=== PATIENT | male | born 1955 | race Caucasian/White ===

== ENCOUNTER 2017-06-14 15:12 | Inpatient (IN) | payer MEDICAID ==
[2017-06-14 15:57] LABS: ADD MAN DIFF? NO
[2017-06-14 16:00] LABS: BASOPHILS % 0.1 % (0.0-2.0); HEMATOCRIT 41.8 % (42.0-52.0); HEMOGLOBIN 12.4 g/dl (14.0-18.0); LYMPHOCYTES # 0.7 10^3/ul (0.8-2.9); LYMPHOCYTES % 4.9 % (15.0-51.0); MEAN CORPUSCULAR HEMOGLOBIN 22.1 pg (29.0-33.0); MEAN CORPUSCULAR HGB CONC 29.7 g/dl (32.0-37.0); MEAN CORPUSCULAR VOLUME 74.6 fl (82.0-101.0); MEAN PLATELET VOLUME 10.5 fl (7.4-10.4); MONOCYTE # 0.7 10^3/ul (0.3-0.9); MONOCYTES % 4.9 % (0.0-11.0); NEUTROPHIL # 13.3 10^3/ul (1.6-7.5); NEUTROPHILS % 89.7 % (39.0-77.0); NUCLEATED RED BLOOD CELLS% 0.3 /100WBC (0.0-0.0); PLATELET COUNT 191 10^3/UL (140-415); RED CELL DISTRIBUTION WIDTH 20.5 % (11.5-14.5)
[2017-06-14 16:00] LABS: WHITE BLOOD COUNT 14.8 10^3/ul (4.8-10.8)
[2017-06-14] MEDS: VANCOMYCIN 1 GM (PMX) 250 ML IVPB (16:00)
[2017-06-14 16:09] LABS: AADO2 Arterial 42.1 mmHg (7.0-24.0); Allen Test ACCEPTAB; Arterial Blood Gas Oxygen Sat 95.6 mmHG (95.0-98.0); Arterial COHb 1.2 % (0.0-3.0); Arterial Fraction of Oxyhgb 94.5 % (93.0-99.0); Arterial HCO3 17.8 mmol/L (22.0-26.0); Arterial MetHb 0 % (0.0-1.5); Arterial Total Hemglobin 12.5 g/dl (12.0-18.0); Arterial pCO2 24.2 mmhg (35-45); MODE ROOM AIR; Site Left Radial
[2017-06-14 16:16] LABS: INR 1.42; PROTIME 17.6 Sec (11.9-14.9); PT RATIO 1.4
[2017-06-14] MEDS: CEFEPIME 1GM/50 ML (PMX) 50 ML IVPB (16:25)
[2017-06-14] MEDS: FUROSEMIDE 40 MG INJ IV (16:25)
[2017-06-14 16:28] LABS: AMMONIA < 9 umol/l (9-30)
[2017-06-14 16:30] LABS: ALANINE AMINOTRANSFERASE 52 IU/L (13-69); ALBUMIN 3.1 g/dl (3.3-4.9); ALBUMIN/GLOBULIN RATIO 0.91; ALKALINE PHOSPHATASE 263 IU/L (42-121); ANION GAP 19 (8-16); ASPARTATE AMINO TRANSFERASE 33 IU/L (15-46); BILIRUBIN,INDIRECT 2.2 mg/dl (0-1.1); BLOOD UREA NITROGEN 37 mg/dl (7-20); CALCIUM 9.1 mg/dl (8.4-10.2); CARBON DIOXIDE 26 mmol/L (21-31); CHLORIDE 95 mmol/L (97-110); CREATININE 1.35 mg/dl (0.61-1.24); GLUCOSE 257 mg/dl (70-220); LIPASE 205 U/L (23-300); POTASSIUM 4.6 mmol/L (3.5-5.1); SODIUM 135 mmol/L (135-144); TOTAL PROTEIN 6.5 g/dl (6.1-8.1)
[2017-06-14 16:41] LABS: B-TYPE NATRIURETIC PEPTIDE 17200 PG/ML (0-125); TROPONIN-I 0.046 ng/ml (0.00-0.12)
[2017-06-14] MEDS ORDERED: VANCOMYCIN IV PER PHARMACY XX (17:00)
[2017-06-14] MEDS ORDERED: BISACODYL (EC) 5 MG TAB PO (17:30)
[2017-06-14] MEDS ORDERED: ACETAMINOPHEN 325 MG TAB PO (17:30)
[2017-06-14] MEDS ORDERED: LORAZEPAM 0.5 MG TAB PO (17:30)
[2017-06-14] MEDS ORDERED: morphine 2 MG INJ IV (17:30)
[2017-06-14] MEDS ORDERED: NACL 0.9% 3 ML SYG IV (17:30)
[2017-06-14] MEDS ORDERED: FUROSEMIDE 20 MG TAB PO (18:00)
[2017-06-14 20:58] LABS: LACTIC ACID 4.1 mmol/L (0.5-2.0)
[2017-06-14] MEDS: BENZONATATE 100 MG CAP PO (23:13)
[2017-06-14] MEDS: DOCUSATE SODIUM 100 MG CAP PO (23:13)
[2017-06-14] MEDS: TAMSULOSIN (SR) 0.4 MG CAP PO (23:13)
[2017-06-14] MEDS: ATORVASTATIN 80 MG TAB PO (23:13)
[2017-06-14] MEDS: HEPARIN 5,000 UNIT/0.5 ML VIAL SC (23:25)
[2017-06-15] MEDS: PIPER-TAZO 3.375 GM IV (PMX) 50 ML IVPB ×4 (00:43→18:56)
[2017-06-15] MEDS: VANCOMYCIN 1 GM in NS 250 ML IVPB (03:06)
[2017-06-15 04:32] LABS: LACTIC ACID 2.6 mmol/L (0.5-2.0)
[2017-06-15] MEDS: HEPARIN 5,000 UNIT/0.5 ML VIAL SC ×3 (05:24→20:41)
[2017-06-15] MEDS: DOCUSATE SODIUM 100 MG CAP PO ×3 (05:29→20:29)
[2017-06-15 05:52] LABS: ADD MAN DIFF? NO
[2017-06-15 06:01] LABS: WHITE BLOOD COUNT 15.9 10^3/ul (4.8-10.8)
[2017-06-15 06:01] LABS: BASOPHILS % 0.1 % (0.0-2.0); EOSINOPHILS # 0.1 10^3/ul (0.0-0.5); EOSINOPHILS % 0.3 % (0.0-7.0); HEMATOCRIT 39.8 % (42.0-52.0); HEMOGLOBIN 11.6 g/dl (14.0-18.0); LYMPHOCYTES # 0.9 10^3/ul (0.8-2.9); LYMPHOCYTES % 5.6 % (15.0-51.0); MEAN CORPUSCULAR HEMOGLOBIN 21.7 pg (29.0-33.0); MEAN CORPUSCULAR HGB CONC 29.1 g/dl (32.0-37.0); MEAN CORPUSCULAR VOLUME 74.5 fl (82.0-101.0); MEAN PLATELET VOLUME 10.8 fl (7.4-10.4); MONOCYTE # 0.8 10^3/ul (0.3-0.9); NEUTROPHIL # 14.1 10^3/ul (1.6-7.5); NEUTROPHILS % 88.5 % (39.0-77.0); PLATELET COUNT 170 10^3/UL (140-415); RED BLOOD COUNT 5.34 10^6/ul (4.70-6.10); RED CELL DISTRIBUTION WIDTH 19.8 % (11.5-14.5)
[2017-06-15 06:35] LABS: ALANINE AMINOTRANSFERASE 50 IU/L (13-69); ALBUMIN 2.5 g/dl (3.3-4.9); ALKALINE PHOSPHATASE 200 IU/L (42-121); ANION GAP 12 (8-16); ASPARTATE AMINO TRANSFERASE 27 IU/L (15-46); BILIRUBIN,INDIRECT 1.5 mg/dl (0-1.1); BLOOD UREA NITROGEN 38 mg/dl (7-20); CALCIUM 8.4 mg/dl (8.4-10.2); CARBON DIOXIDE 31 mmol/L (21-31); CHLORIDE 97 mmol/L (97-110); CHOL/HDL RATIO 4.9 RATIO; CHOLESTEROL 84 mg/dl (100-200); CREATININE 1.35 mg/dl (0.61-1.24); GLUCOSE 238 mg/dl (70-220); HDL CHOLESTEROL 17 mg/dl (30-78); LDL CHOLESTEROL,CALCULATED 47 mg/dl; MAGNESIUM 1.9 mg/dl (1.7-2.5); POTASSIUM 3.4 mmol/L (3.5-5.1); SODIUM 137 mmol/L (135-144); TOTAL PROTEIN 5.6 g/dl (6.1-8.1); TRIGLYCERIDES 98 mg/dl (0-149)
[2017-06-15] MEDS: FUROSEMIDE 40 MG INJ IV ×2 (09:00→20:30)
[2017-06-15] MEDS: METOLAZONE 2.5 MG TAB PO (09:00)
[2017-06-15] MEDS ORDERED: TAMSULOSIN (SR) 0.4 MG CAP PO (09:00)
[2017-06-15] MEDS: ASPIRIN (EC) 81 MG TAB PO (09:09)
[2017-06-15] MEDS: ESCITALOPRAM 10 MG TAB PO (09:10)
[2017-06-15] MEDS: BENZONATATE 100 MG CAP PO (09:10)
[2017-06-15] MEDS: POTASSIUM CHLORIDE 20 MEQ POWDER FOR ORAL SOLN PO (12:33)
[2017-06-15] MEDS: ATORVASTATIN 80 MG TAB PO (20:30)
[2017-06-15] MEDS: TAMSULOSIN (SR) 0.4 MG CAP PO (20:30)
[2017-06-16] MEDS: PIPER-TAZO 3.375 GM IV (PMX) 50 ML IVPB ×5 (00:23→23:07)
[2017-06-16] MEDS: VANCOMYCIN 1 GM in NS 250 ML IVPB (03:45)
[2017-06-16 05:50] LABS: ADD MAN DIFF? NO
[2017-06-16] MEDS: HEPARIN 5,000 UNIT/0.5 ML VIAL SC ×2 (05:51→13:01)
[2017-06-16 05:57] LABS: WHITE BLOOD COUNT 14.2 10^3/ul (4.8-10.8)
[2017-06-16 05:57] LABS: BASOPHILS % 0.1 % (0.0-2.0); EOSINOPHILS # 0.1 10^3/ul (0.0-0.5); EOSINOPHILS % 0.4 % (0.0-7.0); HEMOGLOBIN 11.2 g/dl (14.0-18.0); LYMPHOCYTES # 0.7 10^3/ul (0.8-2.9); MEAN CORPUSCULAR HEMOGLOBIN 21.7 pg (29.0-33.0); MEAN CORPUSCULAR HGB CONC 29.5 g/dl (32.0-37.0); MEAN CORPUSCULAR VOLUME 73.8 fl (82.0-101.0); MEAN PLATELET VOLUME 10.2 fl (7.4-10.4); MONOCYTE # 0.8 10^3/ul (0.3-0.9); MONOCYTES % 5.9 % (0.0-11.0); NEUTROPHIL # 12.5 10^3/ul (1.6-7.5); PLATELET COUNT 175 10^3/UL (140-415); RED BLOOD COUNT 5.15 10^6/ul (4.70-6.10); RED CELL DISTRIBUTION WIDTH 19.7 % (11.5-14.5)
[2017-06-16 06:23] LABS: ANION GAP 13 (8-16); BLOOD UREA NITROGEN 48 mg/dl (7-20); CALCIUM 7.9 mg/dl (8.4-10.2); CARBON DIOXIDE 28 mmol/L (21-31); CHLORIDE 95 mmol/L (97-110); CREATININE 1.79 mg/dl (0.61-1.24); GLUCOSE 320 mg/dl (70-220); MAGNESIUM 1.9 mg/dl (1.7-2.5); PHOSPHORUS 3.1 mg/dl (2.5-4.9); POTASSIUM 4.2 mmol/L (3.5-5.1); SODIUM 132 mmol/L (135-144)
[2017-06-16] MEDS: FUROSEMIDE 40 MG INJ IV ×2 (07:49→21:00)
[2017-06-16] MEDS: METOLAZONE 2.5 MG TAB PO (07:50)
[2017-06-16] MEDS: ASPIRIN (EC) 81 MG TAB PO (08:48)
[2017-06-16] MEDS: DOCUSATE SODIUM 100 MG CAP PO ×2 (08:48→20:35)
[2017-06-16] MEDS: ESCITALOPRAM 10 MG TAB PO (08:48)
[2017-06-16] MEDS: HYDROCODONE/APAP (5/325) TAB PO (08:52)
[2017-06-16] MEDS: INFLUENZA VIRUS VACCINE 0.5 ML (DISPENSING) IM* (13:03)
[2017-06-16] MEDS: MAGNESIUM SULFATE 1 GM/D5W 100 ML IVPB (16:24)
[2017-06-16 17:12] LABS: CREATINE KINASE 20 IU/L (23-200)
[2017-06-16 17:25] LABS: CK INDEX 3.1
[2017-06-16 17:30] LABS: CK-MB 0.62 ng/ml (0.0-2.4)
[2017-06-16] MEDS ORDERED: HEPARIN 25000 UNITS/250 ML 250 ML IV (17:30)
[2017-06-16] MEDS ORDERED: HEPARIN 1000 UNITS/ML 10 ML INJ IV (17:30)
[2017-06-16] MEDS: INSULIN ASPART [NOVOLOG] 3 ML PEN SC ×3 (17:51→20:41)
[2017-06-16] MEDS: ALBUMIN HUMAN 25% 50 ML IV (18:15)
[2017-06-16 18:17] LABS: ADD MAN DIFF? NO
[2017-06-16 18:19] LABS: WHITE BLOOD COUNT 15.3 10^3/ul (4.8-10.8)
[2017-06-16 18:19] LABS: BASOPHILS % 0.1 % (0.0-2.0); EOSINOPHILS % 0.2 % (0.0-7.0); HEMATOCRIT 40.2 % (42.0-52.0); HEMOGLOBIN 12.1 g/dl (14.0-18.0); LYMPHOCYTES # 0.7 10^3/ul (0.8-2.9); LYMPHOCYTES % 4.4 % (15.0-51.0); MEAN CORPUSCULAR HEMOGLOBIN 21.9 pg (29.0-33.0); MEAN CORPUSCULAR HGB CONC 30.1 g/dl (32.0-37.0); MEAN CORPUSCULAR VOLUME 72.8 fl (82.0-101.0); MEAN PLATELET VOLUME 10.2 fl (7.4-10.4); MONOCYTE # 0.8 10^3/ul (0.3-0.9); MONOCYTES % 5.5 % (0.0-11.0); NEUTROPHIL # 13.7 10^3/ul (1.6-7.5); NEUTROPHILS % 89.3 % (39.0-77.0); PLATELET COUNT 193 10^3/UL (140-415); RED BLOOD COUNT 5.52 10^6/ul (4.70-6.10); RED CELL DISTRIBUTION WIDTH 19.9 % (11.5-14.5)
[2017-06-16 18:49] LABS: INR 1.35; PROTIME 16.9 Sec (11.9-14.9); PT RATIO 1.3
[2017-06-16 18:50] LABS: PARTIAL THROMBOPLASTIN TIME 32.5 Sec (25.0-35.0)
[2017-06-16] MEDS: ATORVASTATIN 80 MG TAB PO (20:35)
[2017-06-16] MEDS: TAMSULOSIN (SR) 0.4 MG CAP PO (20:35)
[2017-06-16] MEDS: INSULIN GLARGINE [LANtus] 3 ML PEN SC (20:37)
[2017-06-16] MEDS: ENOXAPARIN 100 MG/ML SYG SC (20:45)
[2017-06-17] MEDS: ALBUMIN HUMAN 25% 100 ML IV ×2 (02:55→05:03)
[2017-06-17] MEDS: VANCOMYCIN 1 GM in NS 250 ML IVPB (03:00)
[2017-06-17 03:22] LABS: VANCOMYCIN,TROUGH 21.1 ug/ml (10.0-20.0)
[2017-06-17] MEDS: HYDROCODONE/APAP (5/325) TAB PO (05:27)
[2017-06-17] MEDS: PIPER-TAZO 3.375 GM IV (PMX) 50 ML IVPB ×3 (05:49→20:58)
[2017-06-17 06:27] LABS: CREATININE 2.22 mg/dl (0.61-1.24)
[2017-06-17 06:27] LABS: BLOOD UREA NITROGEN 53 mg/dl (7-20)
[2017-06-17] MEDS: INSULIN ASPART [NOVOLOG] 3 ML PEN SC ×7 (07:55→20:42)
[2017-06-17] MEDS: ASPIRIN (EC) 81 MG TAB PO (08:27)
[2017-06-17] MEDS: ESCITALOPRAM 10 MG TAB PO (08:28)
[2017-06-17] MEDS: DOCUSATE SODIUM 100 MG CAP PO ×2 (08:28→20:41)
[2017-06-17] MEDS: ENOXAPARIN 100 MG/ML SYG SC (08:31)
[2017-06-17] MEDS: FUROSEMIDE 40 MG INJ IV ×2 (08:33→20:41)
[2017-06-17] MEDS: METOLAZONE 2.5 MG TAB PO (08:33)
[2017-06-17] MEDS ORDERED: GLUCAGON 1 MG INJ IM (12:30)
[2017-06-17] MEDS ORDERED: GLUCOSE GEL 15 GRAM TUBE PO (12:30)
[2017-06-17] MEDS ORDERED: DEXTROSE 50% 50 ML SYRINGE IV (12:30)
[2017-06-17] MEDS ORDERED: GLUCOSE GEL 15 GRAM TUBE BUCCAL (12:30)
[2017-06-17] MEDS: HEPARIN 1000 UNITS/ML 10 ML INJ IV (12:42)
[2017-06-17 14:18] LABS: ADD MAN DIFF? NO
[2017-06-17 14:21] LABS: WHITE BLOOD COUNT 14.4 10^3/ul (4.8-10.8)
[2017-06-17 14:21] LABS: BASOPHILS % 0.1 % (0.0-2.0); EOSINOPHILS # 0.1 10^3/ul (0.0-0.5); EOSINOPHILS % 0.5 % (0.0-7.0); HEMATOCRIT 38.2 % (42.0-52.0); HEMOGLOBIN 11.4 g/dl (14.0-18.0); LYMPHOCYTES % 6.7 % (15.0-51.0); MEAN CORPUSCULAR HEMOGLOBIN 21.8 pg (29.0-33.0); MEAN CORPUSCULAR HGB CONC 29.8 g/dl (32.0-37.0); MEAN CORPUSCULAR VOLUME 73.2 fl (82.0-101.0); MEAN PLATELET VOLUME 10.5 fl (7.4-10.4); NEUTROPHIL # 12.3 10^3/ul (1.6-7.5); NEUTROPHILS % 85.3 % (39.0-77.0); PLATELET COUNT 208 10^3/UL (140-415); RED BLOOD COUNT 5.22 10^6/ul (4.70-6.10); RED CELL DISTRIBUTION WIDTH 19.7 % (11.5-14.5)
[2017-06-17 14:35] LABS: INR 1.58; PROTIME 19.2 Sec (11.9-14.9); PT RATIO 1.5
[2017-06-17 14:39] LABS: ADD UMIC YES; UR ASCORBIC ACID NEGATIVE (NEGATIVE); UR BACTERIA FEW /HPF (NONE SEEN); UR BILIRUBIN (Dip) NEGATIVE (NEGATIVE); UR BLOOD (Dip) 3+ mg/dL (NEGATIVE); UR BUDDING YEAST MODERATE /HPF (NONE SEEN); UR CLARITY CLOUDY (CLEAR); UR COLOR AMBER (YELLOW); UR GLUCOSE (Dip) NEGATIVE (NEGATIVE); UR KETONES (Dip) NEGATIVE (NEGATIVE); UR LEUKOCYTE ESTERASE (Dip) 1+ Leu/ul (NEGATIVE); UR NITRITE (Dip) NEGATIVE (NEGATIVE); UR RBC > 182 /HPF (0-5); UR SPECIFIC GRAVITY (Dip) 1.013 (1.003-1.030); UR TOTAL PROTEIN (Dip) 1+ mg/dl (NEGATIVE); UR UROBILINOGEN (Dip) NEGATIVE (NEGATIVE); UR WBC 74 /HPF (0-5)
[2017-06-17 14:42] LABS: PARTIAL THROMBOPLASTIN TIME 173.6 Sec (25.0-35.0)
[2017-06-17] MEDS: HEPARIN 25000 UNITS/250 ML 250 ML IV (16:04)
[2017-06-17] MEDS: TAMSULOSIN (SR) 0.4 MG CAP PO (20:41)
[2017-06-17] MEDS: ATORVASTATIN 80 MG TAB PO (20:41)
[2017-06-17] MEDS: BENZONATATE 100 MG CAP PO (20:41)
[2017-06-17] MEDS: INSULIN GLARGINE [LANtus] 3 ML PEN SC (20:44)
[2017-06-17] MEDS: COLLAGENASE 30 GM TUBE TOP (20:49)
[2017-06-17 21:06] LABS: PARTIAL THROMBOPLASTIN TIME 59.4 Sec (25.0-35.0)
[2017-06-17 23:09] LABS: CREATININE,URINE RANDOM 58.84 mg/dl (20-370)
[2017-06-17 23:16] LABS: SODIUM,URINE RANDOM < 13 mmol/L (30-90)
[2017-06-18 03:53] LABS: PARTIAL THROMBOPLASTIN TIME > 180.0 Sec (25.0-35.0)
[2017-06-18] MEDS: PIPER-TAZO 3.375 GM IV (PMX) 50 ML IVPB ×2 (05:37→14:53)
[2017-06-18] MEDS: VANCOMYCIN 1 GM in NS 250 ML IVPB (06:14)
[2017-06-18 07:14] LABS: ADD MAN DIFF? NO
[2017-06-18 07:18] LABS: BASOPHILS % 0.1 % (0.0-2.0); EOSINOPHILS % 0.2 % (0.0-7.0); HEMATOCRIT 36.9 % (42.0-52.0); HEMOGLOBIN 11.1 g/dl (14.0-18.0); MEAN CORPUSCULAR HEMOGLOBIN 21.8 pg (29.0-33.0); MEAN CORPUSCULAR HGB CONC 30.1 g/dl (32.0-37.0); MEAN CORPUSCULAR VOLUME 72.4 fl (82.0-101.0); MEAN PLATELET VOLUME 10.2 fl (7.4-10.4); MONOCYTE # 1.2 10^3/ul (0.3-0.9); MONOCYTES % 8.4 % (0.0-11.0); NEUTROPHIL # 11.6 10^3/ul (1.6-7.5); NEUTROPHILS % 83.7 % (39.0-77.0); PLATELET COUNT 210 10^3/UL (140-415); RED CELL DISTRIBUTION WIDTH 19.7 % (11.5-14.5)
[2017-06-18 07:18] LABS: WHITE BLOOD COUNT 13.8 10^3/ul (4.8-10.8)
[2017-06-18 07:43] LABS: PARTIAL THROMBOPLASTIN TIME 41.6 Sec (25.0-35.0)
[2017-06-18 07:44] LABS: ALBUMIN 2.1 g/dl (3.3-4.9); ANION GAP 16 (8-16); BLOOD UREA NITROGEN 59 mg/dl (7-20); CALCIUM 7.8 mg/dl (8.4-10.2); CARBON DIOXIDE 25 mmol/L (21-31); CHLORIDE 98 mmol/L (97-110); CREATININE 2.58 mg/dl (0.61-1.24); GLUCOSE 73 mg/dl (70-220); MAGNESIUM 1.9 mg/dl (1.7-2.5); PHOSPHORUS 4.3 mg/dl (2.5-4.9); POTASSIUM 3.5 mmol/L (3.5-5.1); SODIUM 135 mmol/L (135-144)
[2017-06-18 07:46] LABS: LACTIC ACID 1.9 mmol/L (0.5-2.0)
[2017-06-18] MEDS: INSULIN ASPART [NOVOLOG] 3 ML PEN SC ×7 (07:55→20:45)
[2017-06-18] MEDS: HEPARIN 25000 UNITS/250 ML 250 ML IV ×3 (08:42→23:40)
[2017-06-18] MEDS: DOCUSATE SODIUM 100 MG CAP PO ×2 (09:57→20:47)
[2017-06-18] MEDS: FUROSEMIDE 40 MG INJ IV ×2 (09:58→20:48)
[2017-06-18] MEDS: ASPIRIN (EC) 81 MG TAB PO (09:58)
[2017-06-18] MEDS: ESCITALOPRAM 10 MG TAB PO (09:58)
[2017-06-18] MEDS: COLLAGENASE 30 GM TUBE TOP (10:00)
[2017-06-18] MEDS: METOLAZONE 2.5 MG TAB PO (10:02)
[2017-06-18] MEDS ORDERED: CEFTRIAXONE 1 GM/50 ML (PMX) 50 ML IVPB (12:30)
[2017-06-18 15:03] LABS: PARTIAL THROMBOPLASTIN TIME 43.8 Sec (25.0-35.0)
[2017-06-18] MEDS: HEPARIN 1000 UNITS/ML 10 ML INJ IV (16:15)
[2017-06-18] MEDS: TAMSULOSIN (SR) 0.4 MG CAP PO (20:47)
[2017-06-18] MEDS: ATORVASTATIN 80 MG TAB PO (20:47)
[2017-06-18] MEDS: INSULIN GLARGINE [LANtus] 3 ML PEN SC (20:59)
[2017-06-18 23:10] LABS: PARTIAL THROMBOPLASTIN TIME 49.5 Sec (25.0-35.0)
[2017-06-19 06:48] LABS: ADD MAN DIFF? NO
[2017-06-19 06:51] LABS: BASOPHILS % 0.1 % (0.0-2.0); EOSINOPHILS # 0.1 10^3/ul (0.0-0.5); EOSINOPHILS % 0.7 % (0.0-7.0); HEMATOCRIT 38.3 % (42.0-52.0); HEMOGLOBIN 11.8 g/dl (14.0-18.0); LYMPHOCYTES # 0.8 10^3/ul (0.8-2.9); LYMPHOCYTES % 5.6 % (15.0-51.0); MEAN CORPUSCULAR HEMOGLOBIN 21.7 pg (29.0-33.0); MEAN CORPUSCULAR HGB CONC 30.8 g/dl (32.0-37.0); MEAN CORPUSCULAR VOLUME 70.5 fl (82.0-101.0); MEAN PLATELET VOLUME 9.5 fl (7.4-10.4); MONOCYTE # 0.9 10^3/ul (0.3-0.9); MONOCYTES % 6.4 % (0.0-11.0); NEUTROPHIL # 12.4 10^3/ul (1.6-7.5); NEUTROPHILS % 86.8 % (39.0-77.0); PLATELET COUNT 233 10^3/UL (140-415); RED BLOOD COUNT 5.43 10^6/ul (4.70-6.10); RED CELL DISTRIBUTION WIDTH 20.4 % (11.5-14.5)
[2017-06-19 06:51] LABS: WHITE BLOOD COUNT 14.2 10^3/ul (4.8-10.8)
[2017-06-19] MEDS: INSULIN ASPART [NOVOLOG] 3 ML PEN SC ×7 (07:55→20:42)
[2017-06-19 08:04] LABS: PARTIAL THROMBOPLASTIN TIME 44.7 Sec (25.0-35.0)
[2017-06-19 08:18] LABS: ALBUMIN 2.6 g/dl (3.3-4.9); ANION GAP 17 (8-16); BLOOD UREA NITROGEN 71 mg/dl (7-20); CALCIUM 8.4 mg/dl (8.4-10.2); CARBON DIOXIDE 24 mmol/L (21-31); CHLORIDE 97 mmol/L (97-110); CREATININE 2.94 mg/dl (0.61-1.24); GLUCOSE 121 mg/dl (70-220); POTASSIUM 3.8 mmol/L (3.5-5.1); SODIUM 134 mmol/L (135-144)
[2017-06-19] MEDS: HEPARIN 25000 UNITS/250 ML 250 ML IV ×2 (08:31→16:37)
[2017-06-19] MEDS: HEPARIN 1000 UNITS/ML 10 ML INJ IV (08:32)
[2017-06-19] MEDS: BENZONATATE 100 MG CAP PO (08:35)
[2017-06-19] MEDS: ESCITALOPRAM 10 MG TAB PO (08:36)
[2017-06-19] MEDS: DOCUSATE SODIUM 100 MG CAP PO ×2 (08:36→21:56)
[2017-06-19] MEDS: FUROSEMIDE 40 MG INJ IV (08:36)
[2017-06-19] MEDS: ASPIRIN (EC) 81 MG TAB PO (08:37)
[2017-06-19] MEDS: COLLAGENASE 30 GM TUBE TOP (08:38)
[2017-06-19] MEDS: ALBUMIN HUMAN 25% 50 ML IV (11:00)
[2017-06-19] MEDS ORDERED: FUROSEMIDE 40 MG INJ IV (11:00)
[2017-06-19] MEDS: LEVALBUTEROL (NEB) 0.63 MG/3 ML AMP HHN (12:25)
[2017-06-19] MEDS ORDERED: LIDOCAINE 1% (MPF) 5 ML VIAL SC (14:30)
[2017-06-19] MEDS ORDERED: LIDOCAINE 1% (MPF) 10 ML INJ SC (15:00)
[2017-06-19 15:59] LABS: PARTIAL THROMBOPLASTIN TIME 79.1 Sec (25.0-35.0)
[2017-06-19] MEDS: FUROSEMIDE 20 MG TAB PO (16:34)
[2017-06-19] MEDS: INSULIN GLARGINE [LANtus] 3 ML PEN SC (20:41)
[2017-06-19] MEDS: ATORVASTATIN 80 MG TAB PO (21:56)
[2017-06-19] MEDS: TAMSULOSIN (SR) 0.4 MG CAP PO (21:56)
[2017-06-19] MEDS: LORAZEPAM 2 MG INJ IV (22:34)
[2017-06-20 00:39] LABS: PARTIAL THROMBOPLASTIN TIME 75.6 Sec (25.0-35.0)
[2017-06-20 05:20] LABS: ADD MAN DIFF? NO
[2017-06-20 05:21] LABS: ABNORMAL IP MESSAGE 1; BASOPHILS % 0.1 % (0.0-2.0); EOSINOPHILS # 0.1 10^3/ul (0.0-0.5); EOSINOPHILS % 0.5 % (0.0-7.0); HEMATOCRIT 35.5 % (42.0-52.0); HEMOGLOBIN 10.7 g/dl (14.0-18.0); LYMPHOCYTES # 0.5 10^3/ul (0.8-2.9); MEAN CORPUSCULAR HEMOGLOBIN 21.4 pg (29.0-33.0); MEAN CORPUSCULAR HGB CONC 30.1 g/dl (32.0-37.0); MEAN CORPUSCULAR VOLUME 71.1 fl (82.0-101.0); MEAN PLATELET VOLUME 9.5 fl (7.4-10.4); MONOCYTE # 0.6 10^3/ul (0.3-0.9); MONOCYTES % 5.5 % (0.0-11.0); NEUTROPHIL # 10.1 10^3/ul (1.6-7.5); NEUTROPHILS % 89.5 % (39.0-77.0); PLATELET COUNT 202 10^3/UL (140-415); POSITIVE DIFF @See below; RED BLOOD COUNT 4.99 10^6/ul (4.70-6.10); RED CELL DISTRIBUTION WIDTH 20.4 % (11.5-14.5)
[2017-06-20 05:21] LABS: WHITE BLOOD COUNT 11.3 10^3/ul (4.8-10.8)
[2017-06-20 05:57] LABS: ALBUMIN 2.8 g/dl (3.3-4.9); ANION GAP 18 (8-16); ANION GAP 20 (8-16); BLOOD UREA NITROGEN 74 mg/dl (7-20); CALCIUM 8.3 mg/dl (8.4-10.2); CALCIUM 8.5 mg/dl (8.4-10.2); CARBON DIOXIDE 25 mmol/L (21-31); CARBON DIOXIDE 27 mmol/L (21-31); CHLORIDE 91 mmol/L (97-110); CHLORIDE 92 mmol/L (97-110); CREATININE 2.88 mg/dl (0.61-1.24); CREATININE 2.97 mg/dl (0.61-1.24); GLUCOSE 223 mg/dl (70-220); GLUCOSE 254 mg/dl (70-220); MAGNESIUM 1.9 mg/dl (1.7-2.5); PHOSPHORUS 6.1 mg/dl (2.5-4.9); POTASSIUM 3.6 mmol/L (3.5-5.1); SODIUM 132 mmol/L (135-144); SODIUM 133 mmol/L (135-144)
[2017-06-20 06:28] LABS: PARTIAL THROMBOPLASTIN TIME > 180.0 Sec (25.0-35.0)
[2017-06-20 07:14] LABS: VANCOMYCIN,RANDOM 20.9 ug/ml
[2017-06-20] MEDS: DOCUSATE SODIUM 100 MG CAP PO ×2 (08:32→21:01)
[2017-06-20] MEDS: ESCITALOPRAM 10 MG TAB PO (08:33)
[2017-06-20] MEDS: ASPIRIN (EC) 81 MG TAB PO (08:33)
[2017-06-20] MEDS: INSULIN ASPART [NOVOLOG] 3 ML PEN SC ×7 (08:36→20:48)
[2017-06-20] MEDS: COLLAGENASE 30 GM TUBE TOP (08:39)
[2017-06-20] MEDS: SEVELAMER 800 MG TAB PO ×2 (12:37→18:22)
[2017-06-20 15:12] LABS: PARTIAL THROMBOPLASTIN TIME 60.4 Sec (25.0-35.0)
[2017-06-20] MEDS: INSULIN GLARGINE [LANtus] 3 ML PEN SC (20:53)
[2017-06-20] MEDS: ATORVASTATIN 80 MG TAB PO (21:01)
[2017-06-20] MEDS: TAMSULOSIN (SR) 0.4 MG CAP PO (21:01)
[2017-06-20] MEDS: HEPARIN 25000 UNITS/250 ML 250 ML IV (23:15)
[2017-06-21] MEDS: INSULIN ASPART [NOVOLOG] 3 ML PEN SC ×7 (07:55→21:00)
[2017-06-21] MEDS: SEVELAMER 800 MG TAB PO ×3 (08:39→17:21)
[2017-06-21] MEDS: DOCUSATE SODIUM 100 MG CAP PO ×2 (08:39→21:51)
[2017-06-21] MEDS: ESCITALOPRAM 10 MG TAB PO (08:39)
[2017-06-21] MEDS: COLLAGENASE 30 GM TUBE TOP (08:40)
[2017-06-21] MEDS: ASPIRIN (EC) 81 MG TAB PO (08:40)
[2017-06-21 09:11] LABS: PARTIAL THROMBOPLASTIN TIME 59.8 Sec (25.0-35.0)
[2017-06-21 09:13] LABS: VANCOMYCIN,RANDOM 16.4 ug/ml
[2017-06-21] MEDS: TAMSULOSIN (SR) 0.4 MG CAP PO (21:51)
[2017-06-21] MEDS: ATORVASTATIN 80 MG TAB PO (21:51)
[2017-06-21] MEDS: INSULIN GLARGINE [LANtus] 3 ML PEN SC (21:54)
[2017-06-21] MEDS: VANCOMYCIN 1 GM in NS 250 ML IVPB (21:55)
[2017-06-22] MEDS: INSULIN ASPART [NOVOLOG] 3 ML PEN SC ×7 (07:30→21:00)
[2017-06-22] MEDS: ASPIRIN (EC) 81 MG TAB PO (07:37)
[2017-06-22] MEDS: DOCUSATE SODIUM 100 MG CAP PO ×2 (07:37→21:00)
[2017-06-22] MEDS: ESCITALOPRAM 10 MG TAB PO (07:37)
[2017-06-22] MEDS: SEVELAMER 800 MG TAB PO ×4 (07:37→21:53)
[2017-06-22] MEDS: COLLAGENASE 30 GM TUBE TOP (07:38)
[2017-06-22 08:48] LABS: CREATININE 2.42 mg/dl (0.61-1.24)
[2017-06-22 08:48] LABS: BLOOD UREA NITROGEN 73 mg/dl (7-20); PARTIAL THROMBOPLASTIN TIME 67.3 Sec (25.0-35.0)
[2017-06-22] MEDS: BENZONATATE 100 MG CAP PO (17:24)
[2017-06-22] MEDS: ATORVASTATIN 80 MG TAB PO (21:58)
[2017-06-22] MEDS: TAMSULOSIN (SR) 0.4 MG CAP PO (21:58)
[2017-06-22] MEDS: INSULIN GLARGINE [LANtus] 3 ML PEN SC (22:01)
[2017-06-23 06:38] LABS: ADD MAN DIFF? NO
[2017-06-23 06:48] LABS: WHITE BLOOD COUNT 10.3 10^3/ul (4.8-10.8)
[2017-06-23 06:48] LABS: BASOPHILS % 0.1 % (0.0-2.0); EOSINOPHILS % 0.3 % (0.0-7.0); HEMOGLOBIN 11.1 g/dl (14.0-18.0); LYMPHOCYTES # 0.8 10^3/ul (0.8-2.9); LYMPHOCYTES % 7.3 % (15.0-51.0); MEAN CORPUSCULAR HEMOGLOBIN 21.3 pg (29.0-33.0); MEAN CORPUSCULAR VOLUME 70.9 fl (82.0-101.0); MEAN PLATELET VOLUME 9.6 fl (7.4-10.4); MONOCYTE # 0.7 10^3/ul (0.3-0.9); MONOCYTES % 6.6 % (0.0-11.0); NEUTROPHIL # 8.8 10^3/ul (1.6-7.5); PLATELET COUNT 190 10^3/UL (140-415); RED BLOOD COUNT 5.22 10^6/ul (4.70-6.10); RED CELL DISTRIBUTION WIDTH 19.9 % (11.5-14.5)
[2017-06-23 07:02] LABS: PARTIAL THROMBOPLASTIN TIME 54.5 Sec (25.0-35.0)
[2017-06-23 07:12] LABS: ALBUMIN 2.4 g/dl (3.3-4.9); ANION GAP 16 (8-16); BLOOD UREA NITROGEN 71 mg/dl (7-20); CALCIUM 8.4 mg/dl (8.4-10.2); CARBON DIOXIDE 26 mmol/L (21-31); CHLORIDE 94 mmol/L (97-110); CREATININE 2.08 mg/dl (0.61-1.24); GLUCOSE 136 mg/dl (70-220); MAGNESIUM 1.9 mg/dl (1.7-2.5); PHOSPHORUS 3.9 mg/dl (2.5-4.9); POTASSIUM 3.3 mmol/L (3.5-5.1); SODIUM 133 mmol/L (135-144)
[2017-06-23] MEDS: INSULIN ASPART [NOVOLOG] 3 ML PEN SC ×7 (08:01→21:00)
[2017-06-23] MEDS: COLLAGENASE 30 GM TUBE TOP (08:47)
[2017-06-23] MEDS: ESCITALOPRAM 10 MG TAB PO (08:47)
[2017-06-23] MEDS: DOCUSATE SODIUM 100 MG CAP PO ×2 (08:47→20:56)
[2017-06-23] MEDS: ASPIRIN (EC) 81 MG TAB PO (08:47)
[2017-06-23] MEDS: HEPARIN 25000 UNITS/250 ML 250 ML IV (09:23)
[2017-06-23] MEDS: BENZONATATE 100 MG CAP PO (09:40)
[2017-06-23] MEDS: POTASSIUM CHLORIDE 250 ML IVPB (10:00)
[2017-06-23] MEDS: LEVALBUTEROL (NEB) 0.63 MG/3 ML AMP HHN (10:58)
[2017-06-23] MEDS: ALBUTEROL/IPRATROPIUM (NEB) 3 ML AMP HHN (11:06)
[2017-06-23] MEDS: FUROSEMIDE 40 MG INJ IV (11:14)
[2017-06-23] MEDS: SEVELAMER 800 MG TAB PO ×2 (11:34→16:57)
[2017-06-23] MEDS: POTASSIUM CHLORIDE (SR) 20 MEQ TAB PO (12:31)
[2017-06-23 17:30] LABS: PARTIAL THROMBOPLASTIN TIME 65.7 Sec (25.0-35.0)
[2017-06-23] MEDS: HYDROCODONE/APAP (5/325) TAB PO (18:33)
[2017-06-23] MEDS: TAMSULOSIN (SR) 0.4 MG CAP PO (20:56)
[2017-06-23] MEDS: ATORVASTATIN 80 MG TAB PO (20:56)
[2017-06-23] MEDS: INSULIN GLARGINE [LANtus] 3 ML PEN SC (21:02)
[2017-06-23 23:59] LABS: PARTIAL THROMBOPLASTIN TIME 65.3 Sec (25.0-35.0)
[2017-06-24] MEDS: HEPARIN 25000 UNITS/250 ML 250 ML IV ×2 (05:15→09:21)
[2017-06-24 07:35] LABS: ADD MAN DIFF? NO
[2017-06-24 07:43] LABS: BASOPHILS % 0.1 % (0.0-2.0); EOSINOPHILS % 0.2 % (0.0-7.0); HEMATOCRIT 38.2 % (42.0-52.0); HEMOGLOBIN 11.5 g/dl (14.0-18.0); LYMPHOCYTES # 1.2 10^3/ul (0.8-2.9); MEAN CORPUSCULAR HEMOGLOBIN 21.5 pg (29.0-33.0); MEAN CORPUSCULAR HGB CONC 30.1 g/dl (32.0-37.0); MEAN CORPUSCULAR VOLUME 71.5 fl (82.0-101.0); MEAN PLATELET VOLUME 9.6 fl (7.4-10.4); NEUTROPHIL # 11.5 10^3/ul (1.6-7.5); NEUTROPHILS % 83.3 % (39.0-77.0); PLATELET COUNT 205 10^3/UL (140-415); RED BLOOD COUNT 5.34 10^6/ul (4.70-6.10); RED CELL DISTRIBUTION WIDTH 20.6 % (11.5-14.5)
[2017-06-24 07:43] LABS: WHITE BLOOD COUNT 13.8 10^3/ul (4.8-10.8)
[2017-06-24] MEDS: INSULIN ASPART [NOVOLOG] 3 ML PEN SC ×7 (07:45→21:00)
[2017-06-24 08:04] LABS: ALBUMIN 2.8 g/dl (3.3-4.9); ANION GAP 15 (8-16); BLOOD UREA NITROGEN 75 mg/dl (7-20); CALCIUM 8.7 mg/dl (8.4-10.2); CARBON DIOXIDE 31 mmol/L (21-31); CHLORIDE 92 mmol/L (97-110); CREATININE 2.34 mg/dl (0.61-1.24); GLUCOSE 79 mg/dl (70-220); MAGNESIUM 1.9 mg/dl (1.7-2.5); PHOSPHORUS 4.3 mg/dl (2.5-4.9); POTASSIUM 4.1 mmol/L (3.5-5.1); SODIUM 134 mmol/L (135-144)
[2017-06-24 08:12] LABS: PARTIAL THROMBOPLASTIN TIME 58.1 Sec (25.0-35.0)
[2017-06-24] MEDS: COLLAGENASE 30 GM TUBE TOP (08:58)
[2017-06-24] MEDS: DOCUSATE SODIUM 100 MG CAP PO ×2 (08:58→21:41)
[2017-06-24] MEDS: ASPIRIN (EC) 81 MG TAB PO (09:07)
[2017-06-24] MEDS: SEVELAMER 800 MG TAB PO ×4 (09:07→16:52)
[2017-06-24] MEDS: QUETIAPINE 25 MG TAB PO (09:07)
[2017-06-24] MEDS: ESCITALOPRAM 10 MG TAB PO (09:07)
[2017-06-24] MEDS: FUROSEMIDE 40 MG INJ IV (11:58)
[2017-06-24 12:07] LABS: B-TYPE NATRIURETIC PEPTIDE 25700 PG/ML (0-125)
[2017-06-24] MEDS: WARFARIN 5 MG TAB PO (16:53)
[2017-06-24] MEDS: TAMSULOSIN (SR) 0.4 MG CAP PO (21:41)
[2017-06-24] MEDS: ATORVASTATIN 80 MG TAB PO (21:42)
[2017-06-24] MEDS: INSULIN GLARGINE [LANtus] 3 ML PEN SC (21:43)
[2017-06-25] MEDS: HEPARIN 25000 UNITS/250 ML 250 ML IV (06:01)
[2017-06-25] MEDS: INSULIN ASPART [NOVOLOG] 3 ML PEN SC ×7 (07:55→21:00)
[2017-06-25 09:13] LABS: ADD MAN DIFF? NO
[2017-06-25 09:19] LABS: WHITE BLOOD COUNT 15.1 10^3/ul (4.8-10.8)
[2017-06-25 09:19] LABS: BASOPHILS % 0.1 % (0.0-2.0); EOSINOPHILS % 0.1 % (0.0-7.0); HEMATOCRIT 36.1 % (42.0-52.0); HEMOGLOBIN 10.8 g/dl (14.0-18.0); LYMPHOCYTES # 1.2 10^3/ul (0.8-2.9); MEAN CORPUSCULAR HEMOGLOBIN 20.9 pg (29.0-33.0); MEAN CORPUSCULAR HGB CONC 29.9 g/dl (32.0-37.0); MEAN PLATELET VOLUME 9.3 fl (7.4-10.4); MONOCYTE # 0.7 10^3/ul (0.3-0.9); MONOCYTES % 4.6 % (0.0-11.0); NEUTROPHIL # 13.1 10^3/ul (1.6-7.5); NEUTROPHILS % 86.8 % (39.0-77.0); PLATELET COUNT 213 10^3/UL (140-415); RED BLOOD COUNT 5.16 10^6/ul (4.70-6.10); RED CELL DISTRIBUTION WIDTH 19.8 % (11.5-14.5)
[2017-06-25] MEDS: SEVELAMER 800 MG TAB PO ×3 (09:37→17:38)
[2017-06-25] MEDS: DOCUSATE SODIUM 100 MG CAP PO ×2 (09:37→21:28)
[2017-06-25] MEDS: COLLAGENASE 30 GM TUBE TOP (09:38)
[2017-06-25] MEDS: ESCITALOPRAM 10 MG TAB PO (09:38)
[2017-06-25] MEDS: ASPIRIN (EC) 81 MG TAB PO (09:38)
[2017-06-25 09:53] LABS: ALBUMIN 2.4 g/dl (3.3-4.9); ANION GAP 14 (8-16); BLOOD UREA NITROGEN 70 mg/dl (7-20); CALCIUM 8.4 mg/dl (8.4-10.2); CARBON DIOXIDE 29 mmol/L (21-31); CHLORIDE 95 mmol/L (97-110); CREATININE 2.08 mg/dl (0.61-1.24); MAGNESIUM 1.9 mg/dl (1.7-2.5); PHOSPHORUS 4.4 mg/dl (2.5-4.9); SODIUM 135 mmol/L (135-144)
[2017-06-25 09:59] LABS: GLUCOSE 40 mg/dl (70-220)
[2017-06-25 10:01] LABS: INR 1.33; PROTIME 16.7 Sec (11.9-14.9); PT RATIO 1.3
[2017-06-25 10:08] LABS: PARTIAL THROMBOPLASTIN TIME 57.5 Sec (25.0-35.0)
[2017-06-25 10:29] LABS: URINE EOSINOPHILS 0.3 % (0-1.9)
[2017-06-25] MEDS ORDERED: FLUCONAZOLE 200 MG/NS (PMX) 100 ML IVPB (12:30)
[2017-06-25] MEDS: FUROSEMIDE 40 MG INJ IV (14:07)
[2017-06-25] MEDS: POTASSIUM CHLORIDE (SR) 20 MEQ TAB PO (14:07)
[2017-06-25] MEDS: CASPOFUNGIN 50 MG in SOD CHLORIDE 0.9% 250 ML IVPB (14:08)
[2017-06-25] MEDS: LEVOFLOXACIN 750MG/D5W (PMX) 150 ML IVPB (15:39)
[2017-06-25] MEDS: ONDANSETRON 4 MG INJ IV (15:41)
[2017-06-25] MEDS: MAGNESIUM SULFATE 1 GM/D5W 100 ML IVPB (17:37)
[2017-06-25] MEDS: WARFARIN 5 MG TAB PO (17:38)
[2017-06-25] MEDS ORDERED: INSULIN ASPART [NOVOLOG] 3 ML PEN SC (17:55)
[2017-06-25] MEDS: BENZONATATE 100 MG CAP PO (21:28)
[2017-06-25] MEDS: ATORVASTATIN 80 MG TAB PO (21:28)
[2017-06-25] MEDS: TAMSULOSIN (SR) 0.4 MG CAP PO (21:28)
[2017-06-25] MEDS: INSULIN GLARGINE [LANtus] 3 ML PEN SC (21:33)
[2017-06-26] MEDS: HEPARIN 25000 UNITS/250 ML 250 ML IV ×2 (02:39→22:45)
[2017-06-26 07:17] LABS: ADD MAN DIFF? NO
[2017-06-26 07:22] LABS: WHITE BLOOD COUNT 15.4 10^3/ul (4.8-10.8)
[2017-06-26 07:22] LABS: BASOPHILS % 0.1 % (0.0-2.0); EOSINOPHILS # 0.1 10^3/ul (0.0-0.5); EOSINOPHILS % 0.3 % (0.0-7.0); HEMATOCRIT 36.1 % (42.0-52.0); HEMOGLOBIN 10.9 g/dl (14.0-18.0); LYMPHOCYTES # 1.1 10^3/ul (0.8-2.9); LYMPHOCYTES % 7.1 % (15.0-51.0); MEAN CORPUSCULAR HEMOGLOBIN 21.2 pg (29.0-33.0); MEAN CORPUSCULAR HGB CONC 30.2 g/dl (32.0-37.0); MEAN CORPUSCULAR VOLUME 70.2 fl (82.0-101.0); MEAN PLATELET VOLUME 9.3 fl (7.4-10.4); MONOCYTE # 0.8 10^3/ul (0.3-0.9); MONOCYTES % 4.9 % (0.0-11.0); NEUTROPHIL # 13.4 10^3/ul (1.6-7.5); NEUTROPHILS % 87.2 % (39.0-77.0); PLATELET COUNT 238 10^3/UL (140-415); RED BLOOD COUNT 5.14 10^6/ul (4.70-6.10)
[2017-06-26 07:46] LABS: INR 1.35; PROTIME 16.9 Sec (11.9-14.9); PT RATIO 1.3
[2017-06-26 07:50] LABS: PHOSPHORUS 4.4 mg/dl (2.5-4.9)
[2017-06-26 07:50] LABS: MAGNESIUM 2.1 mg/dl (1.7-2.5)
[2017-06-26 07:51] LABS: ANION GAP 16 (8-16); BLOOD UREA NITROGEN 73 mg/dl (7-20); CALCIUM 8.6 mg/dl (8.4-10.2); CARBON DIOXIDE 29 mmol/L (21-31); CHLORIDE 95 mmol/L (97-110); CREATININE 2.17 mg/dl (0.61-1.24); GLUCOSE 133 mg/dl (70-220); POTASSIUM 4.1 mmol/L (3.5-5.1); SODIUM 136 mmol/L (135-144)
[2017-06-26] MEDS: INSULIN ASPART [NOVOLOG] 3 ML PEN SC ×7 (07:55→21:00)
[2017-06-26] MEDS: DOCUSATE SODIUM 100 MG CAP PO ×2 (08:16→21:09)
[2017-06-26] MEDS: SEVELAMER 800 MG TAB PO ×3 (08:16→17:25)
[2017-06-26] MEDS: ASPIRIN (EC) 81 MG TAB PO (08:16)
[2017-06-26] MEDS: ESCITALOPRAM 10 MG TAB PO (08:16)
[2017-06-26] MEDS: COLLAGENASE 30 GM TUBE TOP (08:18)
[2017-06-26] MEDS: FUROSEMIDE 40 MG INJ IV (12:07)
[2017-06-26] MEDS: LEVOFLOXACIN 750MG/D5W (PMX) 150 ML IVPB (12:29)
[2017-06-26] MEDS: CASPOFUNGIN 50 MG in SOD CHLORIDE 0.9% 250 ML IVPB (14:28)
[2017-06-26] MEDS: WARFARIN 5 MG TAB PO (16:57)
[2017-06-26] MEDS: ATORVASTATIN 80 MG TAB PO (21:09)
[2017-06-26] MEDS: TAMSULOSIN (SR) 0.4 MG CAP PO (21:09)
[2017-06-26] MEDS: INSULIN GLARGINE [LANtus] 3 ML PEN SC (21:13)
[2017-06-26 21:24] LABS: PARTIAL THROMBOPLASTIN TIME 61.3 Sec (25.0-35.0)
[2017-06-27 05:18] LABS: ADD MAN DIFF? NO
[2017-06-27 05:23] LABS: WHITE BLOOD COUNT 14.1 10^3/ul (4.8-10.8)
[2017-06-27 05:23] LABS: BASOPHILS % 0.3 % (0.0-2.0); EOSINOPHILS # 0.1 10^3/ul (0.0-0.5); EOSINOPHILS % 0.6 % (0.0-7.0); HEMOGLOBIN 10.7 g/dl (14.0-18.0); LYMPHOCYTES # 1.1 10^3/ul (0.8-2.9); LYMPHOCYTES % 7.5 % (15.0-51.0); MEAN CORPUSCULAR HEMOGLOBIN 21.4 pg (29.0-33.0); MEAN CORPUSCULAR HGB CONC 30.6 g/dl (32.0-37.0); MEAN PLATELET VOLUME 9.4 fl (7.4-10.4); MONOCYTE # 0.6 10^3/ul (0.3-0.9); MONOCYTES % 4.5 % (0.0-11.0); NEUTROPHIL # 12.2 10^3/ul (1.6-7.5); NEUTROPHILS % 86.7 % (39.0-77.0); PLATELET COUNT 275 10^3/UL (140-415)
[2017-06-27 05:44] LABS: ANION GAP 17 (8-16); BLOOD UREA NITROGEN 72 mg/dl (7-20); CALCIUM 8.7 mg/dl (8.4-10.2); CARBON DIOXIDE 28 mmol/L (21-31); CHLORIDE 95 mmol/L (97-110); CREATININE 2.34 mg/dl (0.61-1.24); GLUCOSE 108 mg/dl (70-220); SODIUM 136 mmol/L (135-144)
[2017-06-27 06:14] LABS: INR 1.54; PROTIME 18.8 Sec (11.9-14.9); PT RATIO 1.5
[2017-06-27 07:14] LABS: PARTIAL THROMBOPLASTIN TIME 73.4 Sec (25.0-35.0)
[2017-06-27] MEDS: INSULIN ASPART [NOVOLOG] 3 ML PEN SC ×7 (07:55→20:54)
[2017-06-27] MEDS: ESCITALOPRAM 10 MG TAB PO (08:30)
[2017-06-27] MEDS: COLLAGENASE 30 GM TUBE TOP (08:30)
[2017-06-27] MEDS: ASPIRIN (EC) 81 MG TAB PO (08:30)
[2017-06-27] MEDS: SEVELAMER 800 MG TAB PO ×3 (08:30→17:24)
[2017-06-27] MEDS: DOCUSATE SODIUM 100 MG CAP PO ×2 (08:30→20:49)
[2017-06-27] MEDS: HEPARIN 25000 UNITS/250 ML 250 ML IV (10:34)
[2017-06-27] MEDS: LEVOFLOXACIN 750MG/D5W (PMX) 150 ML IVPB (12:19)
[2017-06-27] MEDS: CASPOFUNGIN 50 MG in SOD CHLORIDE 0.9% 250 ML IVPB (14:13)
[2017-06-27] MEDS: FUROSEMIDE 40 MG INJ IV (14:13)
[2017-06-27 15:10] LABS: PARTIAL THROMBOPLASTIN TIME 61.5 Sec (25.0-35.0)
[2017-06-27] MEDS: WARFARIN 5 MG TAB PO (17:24)
[2017-06-27] MEDS: ATORVASTATIN 80 MG TAB PO (20:48)
[2017-06-27] MEDS: TAMSULOSIN (SR) 0.4 MG CAP PO (20:49)
[2017-06-27] MEDS: INSULIN GLARGINE [LANtus] 3 ML PEN SC (20:53)
[2017-06-27 21:00] LABS: PARTIAL THROMBOPLASTIN TIME 66.4 Sec (25.0-35.0)
[2017-06-28] MEDS: FUROSEMIDE 40 MG INJ IV (05:40)
[2017-06-28] MEDS: INSULIN ASPART [NOVOLOG] 3 ML PEN SC ×7 (07:55→21:00)
[2017-06-28 08:25] LABS: ADD MAN DIFF? NO
[2017-06-28 08:28] LABS: WHITE BLOOD COUNT 10.9 10^3/ul (4.8-10.8)
[2017-06-28 08:28] LABS: BASOPHILS % 0.2 % (0.0-2.0); EOSINOPHILS % 0.3 % (0.0-7.0); HEMATOCRIT 36.3 % (42.0-52.0); HEMOGLOBIN 10.8 g/dl (14.0-18.0); LYMPHOCYTES % 9.3 % (15.0-51.0); MEAN CORPUSCULAR HEMOGLOBIN 20.9 pg (29.0-33.0); MEAN CORPUSCULAR HGB CONC 29.8 g/dl (32.0-37.0); MEAN CORPUSCULAR VOLUME 70.2 fl (82.0-101.0); MEAN PLATELET VOLUME 9.4 fl (7.4-10.4); MONOCYTE # 0.6 10^3/ul (0.3-0.9); MONOCYTES % 5.4 % (0.0-11.0); NEUTROPHIL # 9.2 10^3/ul (1.6-7.5); NEUTROPHILS % 84.3 % (39.0-77.0); PLATELET COUNT 319 10^3/UL (140-415); RED BLOOD COUNT 5.17 10^6/ul (4.70-6.10); RED CELL DISTRIBUTION WIDTH 19.7 % (11.5-14.5)
[2017-06-28] MEDS: ASPIRIN (EC) 81 MG TAB PO (08:28)
[2017-06-28] MEDS: ESCITALOPRAM 10 MG TAB PO (08:28)
[2017-06-28] MEDS: SEVELAMER 800 MG TAB PO ×3 (08:28→17:32)
[2017-06-28] MEDS: DOCUSATE SODIUM 100 MG CAP PO ×2 (08:28→20:56)
[2017-06-28] MEDS: COLLAGENASE 30 GM TUBE TOP (08:29)
[2017-06-28 08:56] LABS: INR 2.12; PROTIME 24.3 Sec (11.9-14.9); PT RATIO 1.9
[2017-06-28 08:58] LABS: ANION GAP 16 (8-16); BLOOD UREA NITROGEN 75 mg/dl (7-20); CARBON DIOXIDE 26 mmol/L (21-31); CHLORIDE 97 mmol/L (97-110); CREATININE 2.44 mg/dl (0.61-1.24); GLUCOSE 118 mg/dl (70-220); POTASSIUM 4.1 mmol/L (3.5-5.1); SODIUM 135 mmol/L (135-144)
[2017-06-28 09:09] LABS: PARTIAL THROMBOPLASTIN TIME 54.8 Sec (25.0-35.0)
[2017-06-28] MEDS: HEPARIN 25000 UNITS/250 ML 250 ML IV (09:24)
[2017-06-28] MEDS: LEVOFLOXACIN 750MG/D5W (PMX) 150 ML IVPB (12:12)
[2017-06-28] MEDS: CASPOFUNGIN 50 MG in SOD CHLORIDE 0.9% 250 ML IVPB (14:12)
[2017-06-28] MEDS: WARFARIN 3 MG TAB PO (17:32)
[2017-06-28] MEDS: TAMSULOSIN (SR) 0.4 MG CAP PO (20:56)
[2017-06-28] MEDS: ATORVASTATIN 80 MG TAB PO (20:56)
[2017-06-28] MEDS: INSULIN GLARGINE [LANtus] 3 ML PEN SC (21:00)
[2017-06-29] MEDS: FUROSEMIDE 40 MG INJ IV (05:30)
[2017-06-29 06:33] LABS: ADD MAN DIFF? NO
[2017-06-29 06:40] LABS: WHITE BLOOD COUNT 11.4 10^3/ul (4.8-10.8)
[2017-06-29 06:40] LABS: BASOPHILS % 0.2 % (0.0-2.0); EOSINOPHILS % 0.3 % (0.0-7.0); HEMOGLOBIN 10.8 g/dl (14.0-18.0); MEAN PLATELET VOLUME 9.3 fl (7.4-10.4); MONOCYTE # 0.7 10^3/ul (0.3-0.9); MONOCYTES % 5.8 % (0.0-11.0); NEUTROPHIL # 9.6 10^3/ul (1.6-7.5); NEUTROPHILS % 84.3 % (39.0-77.0); PLATELET COUNT 324 10^3/UL (140-415); RED BLOOD COUNT 5.14 10^6/ul (4.70-6.10); RED CELL DISTRIBUTION WIDTH 19.9 % (11.5-14.5)
[2017-06-29 07:09] LABS: PROTIME 30.3 Sec (11.9-14.9); PT RATIO 2.4
[2017-06-29 07:13] LABS: ANION GAP 16 (8-16); BLOOD UREA NITROGEN 74 mg/dl (7-20); CALCIUM 9.1 mg/dl (8.4-10.2); CARBON DIOXIDE 28 mmol/L (21-31); CHLORIDE 97 mmol/L (97-110); CREATININE 2.62 mg/dl (0.61-1.24); GLUCOSE 105 mg/dl (70-220); POTASSIUM 4.2 mmol/L (3.5-5.1); SODIUM 137 mmol/L (135-144)
[2017-06-29] MEDS: INSULIN ASPART [NOVOLOG] 3 ML PEN SC ×7 (07:55→21:00)
[2017-06-29] MEDS: ESCITALOPRAM 10 MG TAB PO (08:11)
[2017-06-29] MEDS: ASPIRIN (EC) 81 MG TAB PO (08:11)
[2017-06-29] MEDS: DOCUSATE SODIUM 100 MG CAP PO ×2 (08:11→21:50)
[2017-06-29] MEDS: SEVELAMER 800 MG TAB PO ×3 (08:11→18:10)
[2017-06-29] MEDS: COLLAGENASE 30 GM TUBE TOP (08:12)
[2017-06-29] MEDS: LEVOFLOXACIN 750MG/D5W (PMX) 150 ML IVPB (12:10)
[2017-06-29] MEDS: SPIRONOLACTONE 25 MG TAB PO (14:30)
[2017-06-29] MEDS: CASPOFUNGIN 50 MG in SOD CHLORIDE 0.9% 250 ML IVPB (14:30)
[2017-06-29] MEDS: WARFARIN 2 MG TAB PO (18:10)
[2017-06-29] MEDS: TAMSULOSIN (SR) 0.4 MG CAP PO (21:50)
[2017-06-29] MEDS: ATORVASTATIN 80 MG TAB PO (21:50)
[2017-06-29] MEDS: INSULIN GLARGINE [LANtus] 3 ML PEN SC (21:55)
[2017-06-30] MEDS: FUROSEMIDE 40 MG INJ IV (06:18)
[2017-06-30] MEDS: INSULIN ASPART [NOVOLOG] 3 ML PEN SC ×7 (07:55→20:25)
[2017-06-30] MEDS: ESCITALOPRAM 10 MG TAB PO (08:28)
[2017-06-30] MEDS: SEVELAMER 800 MG TAB PO ×3 (08:28→17:36)
[2017-06-30] MEDS: SPIRONOLACTONE 25 MG TAB PO (08:28)
[2017-06-30] MEDS: ASPIRIN (EC) 81 MG TAB PO (08:28)
[2017-06-30] MEDS: DOCUSATE SODIUM 100 MG CAP PO ×2 (08:29→20:22)
[2017-06-30] MEDS: COLLAGENASE 30 GM TUBE TOP (09:58)
[2017-06-30 10:14] LABS: ADD MAN DIFF? NO
[2017-06-30 10:24] LABS: WHITE BLOOD COUNT 15.6 10^3/ul (4.8-10.8)
[2017-06-30 10:24] LABS: BASOPHILS % 0.2 % (0.0-2.0); EOSINOPHILS % 0.3 % (0.0-7.0); HEMATOCRIT 40.6 % (42.0-52.0); LYMPHOCYTES % 6.3 % (15.0-51.0); MEAN CORPUSCULAR HEMOGLOBIN 20.8 pg (29.0-33.0); MEAN CORPUSCULAR HGB CONC 29.6 g/dl (32.0-37.0); MEAN CORPUSCULAR VOLUME 70.2 fl (82.0-101.0); MEAN PLATELET VOLUME 9.5 fl (7.4-10.4); MONOCYTE # 0.8 10^3/ul (0.3-0.9); MONOCYTES % 4.9 % (0.0-11.0); NEUTROPHIL # 13.7 10^3/ul (1.6-7.5); NEUTROPHILS % 87.7 % (39.0-77.0); PLATELET COUNT 430 10^3/UL (140-415); RED BLOOD COUNT 5.78 10^6/ul (4.70-6.10); RED CELL DISTRIBUTION WIDTH 20.3 % (11.5-14.5)
[2017-06-30] MEDS: LEVOFLOXACIN 750 MG TABLET PO (10:26)
[2017-06-30 10:35] LABS: HEMOGLOBIN A1C 8.9 % (0-5.9)
[2017-06-30 10:36] LABS: INR 3.26; PROTIME 34.2 Sec (11.9-14.9); PT RATIO 2.7
[2017-06-30 10:52] LABS: ANION GAP 19 (8-16); BLOOD UREA NITROGEN 79 mg/dl (7-20); CALCIUM 8.6 mg/dl (8.4-10.2); CARBON DIOXIDE 23 mmol/L (21-31); CHLORIDE 98 mmol/L (97-110); CREATININE 2.57 mg/dl (0.61-1.24); GLUCOSE 94 mg/dl (70-220); POTASSIUM 4.6 mmol/L (3.5-5.1); SODIUM 135 mmol/L (135-144)
[2017-06-30 10:53] LABS: PHOSPHORUS 5.6 mg/dl (2.5-4.9)
[2017-06-30 10:53] LABS: MAGNESIUM 1.9 mg/dl (1.7-2.5)
[2017-06-30] MEDS: WARFARIN 2 MG TAB PO (17:38)
[2017-06-30] MEDS: FUROSEMIDE 40 MG TAB PO (17:38)
[2017-06-30] MEDS: ATORVASTATIN 80 MG TAB PO (20:22)
[2017-06-30] MEDS: TAMSULOSIN (SR) 0.4 MG CAP PO (20:23)
[2017-06-30] MEDS: INSULIN GLARGINE [LANtus] 3 ML PEN SC (20:25)
[2017-06-30] MEDS ORDERED: METOPROLOL 25 MG TAB PO (21:00)
[2017-07-01] MEDS: FUROSEMIDE 40 MG TAB PO ×2 (05:14→17:15)
[2017-07-01] MEDS: INSULIN ASPART [NOVOLOG] 3 ML PEN SC ×7 (07:55→20:28)
[2017-07-01] MEDS: SEVELAMER 800 MG TAB PO ×3 (08:56→17:12)
[2017-07-01] MEDS: ASPIRIN (EC) 81 MG TAB PO (08:56)
[2017-07-01] MEDS: DOCUSATE SODIUM 100 MG CAP PO ×2 (08:57→20:24)
[2017-07-01] MEDS: SPIRONOLACTONE 25 MG TAB PO (08:57)
[2017-07-01] MEDS: ESCITALOPRAM 10 MG TAB PO (09:09)
[2017-07-01] MEDS: COLLAGENASE 30 GM TUBE TOP (09:09)
[2017-07-01 11:16] LABS: INR 3.48; PROTIME 36.1 Sec (11.9-14.9); PT RATIO 2.8
[2017-07-01] MEDS ORDERED: LEVOFLOXACIN 750MG/D5W (PMX) 150 ML IVPB (12:00)
[2017-07-01] MEDS: WARFARIN 2 MG TAB PO (17:12)
[2017-07-01] MEDS: TAMSULOSIN (SR) 0.4 MG CAP PO (20:24)
[2017-07-01] MEDS: ATORVASTATIN 80 MG TAB PO (20:24)
[2017-07-01] MEDS: INSULIN GLARGINE [LANtus] 3 ML PEN SC (20:31)
[2017-07-02] MEDS: FUROSEMIDE 40 MG TAB PO (05:23)
[2017-07-02] MEDS: INSULIN ASPART [NOVOLOG] 3 ML PEN SC ×7 (07:55→20:56)
[2017-07-02] MEDS: DOCUSATE SODIUM 100 MG CAP PO ×2 (08:52→20:55)
[2017-07-02] MEDS: SEVELAMER 800 MG TAB PO ×3 (08:52→17:37)
[2017-07-02] MEDS: ASPIRIN (EC) 81 MG TAB PO (08:52)
[2017-07-02] MEDS: ESCITALOPRAM 10 MG TAB PO (08:53)
[2017-07-02] MEDS: SPIRONOLACTONE 25 MG TAB PO (08:53)
[2017-07-02] MEDS: COLLAGENASE 30 GM TUBE TOP (08:57)
[2017-07-02 10:28] LABS: INR 4.58; PROTIME 44.9 Sec (11.9-14.9); PT RATIO 3.5
[2017-07-02 10:35] LABS: ANION GAP 16 (8-16); BLOOD UREA NITROGEN 81 mg/dl (7-20); CALCIUM 9.1 mg/dl (8.4-10.2); CARBON DIOXIDE 29 mmol/L (21-31); CHLORIDE 97 mmol/L (97-110); CREATININE 3.07 mg/dl (0.61-1.24); GLUCOSE 93 mg/dl (70-220); POTASSIUM 4.3 mmol/L (3.5-5.1); SODIUM 138 mmol/L (135-144)
[2017-07-02] MEDS: TAMSULOSIN (SR) 0.4 MG CAP PO (20:55)
[2017-07-02] MEDS: ATORVASTATIN 80 MG TAB PO (20:55)
[2017-07-02] MEDS: INSULIN GLARGINE [LANtus] 3 ML PEN SC (21:06)
[2017-07-03] MEDS: INSULIN ASPART [NOVOLOG] 3 ML PEN SC ×7 (07:55→20:29)
[2017-07-03] MEDS: SEVELAMER 800 MG TAB PO ×3 (08:31→17:43)
[2017-07-03] MEDS: ASPIRIN (EC) 81 MG TAB PO (08:31)
[2017-07-03] MEDS: DOCUSATE SODIUM 100 MG CAP PO ×2 (08:31→20:20)
[2017-07-03] MEDS: ESCITALOPRAM 10 MG TAB PO (08:31)
[2017-07-03] MEDS: SPIRONOLACTONE 25 MG TAB PO (08:31)
[2017-07-03] MEDS: COLLAGENASE 30 GM TUBE TOP (08:32)
[2017-07-03 09:42] LABS: INR 4.97; PT RATIO 3.8
[2017-07-03] MEDS: TAMSULOSIN (SR) 0.4 MG CAP PO (20:20)
[2017-07-03] MEDS: ATORVASTATIN 80 MG TAB PO (20:20)
[2017-07-03] MEDS: INSULIN GLARGINE [LANtus] 3 ML PEN SC (20:26)
[2017-07-04] MEDS: INSULIN ASPART [NOVOLOG] 3 ML PEN SC ×7 (07:50→20:31)
[2017-07-04] MEDS: COLLAGENASE 30 GM TUBE TOP ×2 (09:00→22:15)
[2017-07-04] MEDS: SEVELAMER 800 MG TAB PO ×3 (09:02→17:55)
[2017-07-04] MEDS: ESCITALOPRAM 10 MG TAB PO (09:02)
[2017-07-04] MEDS: SPIRONOLACTONE 25 MG TAB PO (09:02)
[2017-07-04] MEDS: DOCUSATE SODIUM 100 MG CAP PO ×2 (09:03→20:33)
[2017-07-04] MEDS: ASPIRIN (EC) 81 MG TAB PO (09:04)
[2017-07-04 12:29] LABS: ANION GAP 19 (8-16); BLOOD UREA NITROGEN 83 mg/dl (7-20); CALCIUM 8.9 mg/dl (8.4-10.2); CARBON DIOXIDE 28 mmol/L (21-31); CHLORIDE 98 mmol/L (97-110); CREATININE 3.02 mg/dl (0.61-1.24); GLUCOSE 108 mg/dl (70-220); POTASSIUM 4.5 mmol/L (3.5-5.1); SODIUM 140 mmol/L (135-144)
[2017-07-04 12:38] LABS: INR 4.61; PROTIME 45.2 Sec (11.9-14.9); PT RATIO 3.5
[2017-07-04] MEDS ORDERED: WARFARIN 2 MG TAB PO (17:00)
[2017-07-04] MEDS: ATORVASTATIN 80 MG TAB PO (20:30)
[2017-07-04] MEDS: TAMSULOSIN (SR) 0.4 MG CAP PO (20:30)
[2017-07-04] MEDS: INSULIN GLARGINE [LANtus] 3 ML PEN SC (21:57)
[2017-07-05 05:28] LABS: ADD MAN DIFF? NO
[2017-07-05 05:51] LABS: WHITE BLOOD COUNT 11.6 10^3/ul (4.8-10.8)
[2017-07-05 05:51] LABS: BASOPHILS % 0.2 % (0.0-2.0); EOSINOPHILS # 0.1 10^3/ul (0.0-0.5); HEMATOCRIT 37.8 % (42.0-52.0); HEMOGLOBIN 11.3 g/dl (14.0-18.0); LYMPHOCYTES # 1.2 10^3/ul (0.8-2.9); LYMPHOCYTES % 10.4 % (15.0-51.0); MEAN CORPUSCULAR HEMOGLOBIN 21.1 pg (29.0-33.0); MEAN CORPUSCULAR HGB CONC 29.9 g/dl (32.0-37.0); MEAN CORPUSCULAR VOLUME 70.7 fl (82.0-101.0); MEAN PLATELET VOLUME 9.7 fl (7.4-10.4); MONOCYTE # 0.7 10^3/ul (0.3-0.9); MONOCYTES % 5.9 % (0.0-11.0); NEUTROPHIL # 9.5 10^3/ul (1.6-7.5); NEUTROPHILS % 82.1 % (39.0-77.0); PLATELET COUNT 268 10^3/UL (140-415); RED BLOOD COUNT 5.35 10^6/ul (4.70-6.10); RED CELL DISTRIBUTION WIDTH 21.7 % (11.5-14.5)
[2017-07-05 06:13] LABS: INR 4.53; PROTIME 44.5 Sec (11.9-14.9); PT RATIO 3.5
[2017-07-05 06:19] LABS: ALBUMIN 2.6 g/dl (3.3-4.9); ANION GAP 20 (8-16); BLOOD UREA NITROGEN 82 mg/dl (7-20); CALCIUM 8.9 mg/dl (8.4-10.2); CARBON DIOXIDE 26 mmol/L (21-31); CHLORIDE 99 mmol/L (97-110); CREATININE 2.78 mg/dl (0.61-1.24); GLUCOSE 102 mg/dl (70-220); POTASSIUM 4.8 mmol/L (3.5-5.1); SODIUM 140 mmol/L (135-144)
[2017-07-05] MEDS: DOCUSATE SODIUM 100 MG CAP PO ×2 (08:55→20:16)
[2017-07-05] MEDS: SPIRONOLACTONE 25 MG TAB PO (08:56)
[2017-07-05] MEDS: SEVELAMER 800 MG TAB PO ×3 (08:56→18:00)
[2017-07-05] MEDS: ASPIRIN (EC) 81 MG TAB PO (08:56)
[2017-07-05] MEDS: ESCITALOPRAM 10 MG TAB PO (08:56)
[2017-07-05] MEDS: COLLAGENASE 30 GM TUBE TOP (08:57)
[2017-07-05] MEDS: INSULIN ASPART [NOVOLOG] 3 ML PEN SC ×7 (09:00→20:20)
[2017-07-05] MEDS: TAMSULOSIN (SR) 0.4 MG CAP PO (20:16)
[2017-07-05] MEDS: ATORVASTATIN 80 MG TAB PO (20:16)
[2017-07-05] MEDS: INSULIN GLARGINE [LANtus] 3 ML PEN SC (20:18)
[2017-07-06 05:51] LABS: ADD MAN DIFF? NO
[2017-07-06 05:59] LABS: WHITE BLOOD COUNT 12.1 10^3/ul (4.8-10.8)
[2017-07-06 05:59] LABS: BASOPHILS % 0.2 % (0.0-2.0); EOSINOPHILS # 0.1 10^3/ul (0.0-0.5); EOSINOPHILS % 0.7 % (0.0-7.0); HEMATOCRIT 38.6 % (42.0-52.0); HEMOGLOBIN 11.3 g/dl (14.0-18.0); LYMPHOCYTES # 1.1 10^3/ul (0.8-2.9); LYMPHOCYTES % 8.7 % (15.0-51.0); MEAN CORPUSCULAR HEMOGLOBIN 20.8 pg (29.0-33.0); MEAN CORPUSCULAR HGB CONC 29.3 g/dl (32.0-37.0); MEAN CORPUSCULAR VOLUME 71.1 fl (82.0-101.0); MEAN PLATELET VOLUME 9.3 fl (7.4-10.4); MONOCYTE # 0.7 10^3/ul (0.3-0.9); MONOCYTES % 5.6 % (0.0-11.0); NEUTROPHIL # 10.2 10^3/ul (1.6-7.5); NEUTROPHILS % 84.3 % (39.0-77.0); PLATELET COUNT 253 10^3/UL (140-415); RED BLOOD COUNT 5.43 10^6/ul (4.70-6.10); RED CELL DISTRIBUTION WIDTH 21.6 % (11.5-14.5)
[2017-07-06 06:29] LABS: INR 4.16; PROTIME 41.6 Sec (11.9-14.9); PT RATIO 3.3
[2017-07-06 07:24] LABS: ALBUMIN 2.7 g/dl (3.3-4.9); ANION GAP 20 (8-16); BLOOD UREA NITROGEN 80 mg/dl (7-20); CALCIUM 8.6 mg/dl (8.4-10.2); CARBON DIOXIDE 24 mmol/L (21-31); CHLORIDE 99 mmol/L (97-110); CREATININE 2.86 mg/dl (0.61-1.24); GLUCOSE 116 mg/dl (70-220); PHOSPHORUS 4.9 mg/dl (2.5-4.9); POTASSIUM 4.5 mmol/L (3.5-5.1); SODIUM 138 mmol/L (135-144)
[2017-07-06] MEDS: ESCITALOPRAM 10 MG TAB PO (08:50)
[2017-07-06] MEDS: SEVELAMER 800 MG TAB PO ×3 (08:50→17:58)
[2017-07-06] MEDS: SPIRONOLACTONE 25 MG TAB PO (08:51)
[2017-07-06] MEDS: DOCUSATE SODIUM 100 MG CAP PO ×2 (08:51→20:45)
[2017-07-06] MEDS: ASPIRIN (EC) 81 MG TAB PO (08:51)
[2017-07-06] MEDS: COLLAGENASE 30 GM TUBE TOP (08:51)
[2017-07-06] MEDS: INSULIN ASPART [NOVOLOG] 3 ML PEN SC ×7 (08:55→20:50)
[2017-07-06] MEDS: TAMSULOSIN (SR) 0.4 MG CAP PO (20:45)
[2017-07-06] MEDS: ATORVASTATIN 80 MG TAB PO (20:45)
[2017-07-06] MEDS: INSULIN GLARGINE [LANtus] 3 ML PEN SC (20:48)
[2017-07-07 05:45] LABS: ADD MAN DIFF? NO
[2017-07-07 05:53] LABS: BASOPHILS % 0.2 % (0.0-2.0); EOSINOPHILS # 0.2 10^3/ul (0.0-0.5); EOSINOPHILS % 1.6 % (0.0-7.0); LYMPHOCYTES # 1.1 10^3/ul (0.8-2.9); LYMPHOCYTES % 8.7 % (15.0-51.0); MEAN CORPUSCULAR HGB CONC 29.7 g/dl (32.0-37.0); MEAN CORPUSCULAR VOLUME 70.5 fl (82.0-101.0); MEAN PLATELET VOLUME 10.2 fl (7.4-10.4); MONOCYTE # 0.7 10^3/ul (0.3-0.9); MONOCYTES % 5.8 % (0.0-11.0); NEUTROPHIL # 10.1 10^3/ul (1.6-7.5); NEUTROPHILS % 83.4 % (39.0-77.0); PLATELET COUNT 224 10^3/UL (140-415); RED BLOOD COUNT 5.25 10^6/ul (4.70-6.10); RED CELL DISTRIBUTION WIDTH 21.7 % (11.5-14.5)
[2017-07-07 05:53] LABS: WHITE BLOOD COUNT 12.2 10^3/ul (4.8-10.8)
[2017-07-07 06:02] LABS: PROTIME 38.7 Sec (11.9-14.9)
[2017-07-07 06:13] LABS: ALBUMIN 2.8 g/dl (3.3-4.9); ANION GAP 17 (8-16); BLOOD UREA NITROGEN 80 mg/dl (7-20); CALCIUM 8.5 mg/dl (8.4-10.2); CARBON DIOXIDE 25 mmol/L (21-31); CHLORIDE 99 mmol/L (97-110); CREATININE 2.86 mg/dl (0.61-1.24); GLUCOSE 82 mg/dl (70-220); MAGNESIUM 2.1 mg/dl (1.7-2.5); PHOSPHORUS 4.6 mg/dl (2.5-4.9); POTASSIUM 4.2 mmol/L (3.5-5.1); SODIUM 137 mmol/L (135-144)
[2017-07-07] MEDS: ASPIRIN (EC) 81 MG TAB PO (08:32)
[2017-07-07] MEDS: SPIRONOLACTONE 25 MG TAB PO (08:32)
[2017-07-07] MEDS: DOCUSATE SODIUM 100 MG CAP PO ×2 (08:32→21:35)
[2017-07-07] MEDS: SEVELAMER 800 MG TAB PO ×3 (08:33→18:03)
[2017-07-07] MEDS: COLLAGENASE 30 GM TUBE TOP (08:33)
[2017-07-07] MEDS: ESCITALOPRAM 10 MG TAB PO (08:33)
[2017-07-07] MEDS: INSULIN ASPART [NOVOLOG] 3 ML PEN SC ×7 (09:29→21:00)
[2017-07-07] MEDS: INSULIN GLARGINE [LANtus] 3 ML PEN SC (21:00)
[2017-07-07] MEDS: TAMSULOSIN (SR) 0.4 MG CAP PO (21:35)
[2017-07-07] MEDS: ATORVASTATIN 80 MG TAB PO (21:35)
[2017-07-08 05:59] LABS: INR 3.26; PROTIME 34.2 Sec (11.9-14.9); PT RATIO 2.7
[2017-07-08] MEDS: ONDANSETRON 4 MG INJ IV (07:53)
[2017-07-08] MEDS: INSULIN ASPART [NOVOLOG] 3 ML PEN SC ×7 (09:10→20:48)
[2017-07-08] MEDS: SEVELAMER 800 MG TAB PO ×3 (09:10→18:05)
[2017-07-08] MEDS: DOCUSATE SODIUM 100 MG CAP PO ×2 (09:10→20:46)
[2017-07-08] MEDS: COLLAGENASE 30 GM TUBE TOP (09:11)
[2017-07-08] MEDS: SPIRONOLACTONE 25 MG TAB PO (09:11)
[2017-07-08] MEDS: ASPIRIN (EC) 81 MG TAB PO (09:11)
[2017-07-08] MEDS: ESCITALOPRAM 10 MG TAB PO (09:11)
[2017-07-08] MEDS: ATORVASTATIN 80 MG TAB PO (20:46)
[2017-07-08] MEDS: TAMSULOSIN (SR) 0.4 MG CAP PO (20:46)
[2017-07-08] MEDS: INSULIN GLARGINE [LANtus] 3 ML PEN SC (20:52)
[2017-07-09 06:27] LABS: ADD MAN DIFF? NO
[2017-07-09 06:29] LABS: WHITE BLOOD COUNT 10.4 10^3/ul (4.8-10.8)
[2017-07-09 06:29] LABS: ABNORMAL IP MESSAGE 1; BASOPHILS % 0.3 % (0.0-2.0); EOSINOPHILS # 0.2 10^3/ul (0.0-0.5); EOSINOPHILS % 2.1 % (0.0-7.0); HEMOGLOBIN 11.1 g/dl (14.0-18.0); LYMPHOCYTES # 1.2 10^3/ul (0.8-2.9); LYMPHOCYTES % 11.7 % (15.0-51.0); MEAN CORPUSCULAR HEMOGLOBIN 21.2 pg (29.0-33.0); MEAN CORPUSCULAR HGB CONC 29.2 g/dl (32.0-37.0); MEAN CORPUSCULAR VOLUME 72.7 fl (82.0-101.0); MEAN PLATELET VOLUME 9.9 fl (7.4-10.4); MONOCYTE # 0.8 10^3/ul (0.3-0.9); MONOCYTES % 8.1 % (0.0-11.0); NEUTROPHIL # 8.1 10^3/ul (1.6-7.5); NEUTROPHILS % 77.2 % (39.0-77.0); PLATELET COUNT 203 10^3/UL (140-415); POSITIVE DIFF @See below; RED BLOOD COUNT 5.23 10^6/ul (4.70-6.10); RED CELL DISTRIBUTION WIDTH 22.4 % (11.5-14.5)
[2017-07-09 06:59] LABS: ANION GAP 21 (8-16); BLOOD UREA NITROGEN 82 mg/dl (7-20); CALCIUM 8.3 mg/dl (8.4-10.2); CARBON DIOXIDE 21 mmol/L (21-31); CHLORIDE 99 mmol/L (97-110); CREATININE 3.03 mg/dl (0.61-1.24); GLUCOSE 84 mg/dl (70-220); POTASSIUM 5.1 mmol/L (3.5-5.1); SODIUM 136 mmol/L (135-144)
[2017-07-09 07:10] LABS: INR 2.95; PROTIME 31.6 Sec (11.9-14.9); PT RATIO 2.5
[2017-07-09] MEDS: INSULIN ASPART [NOVOLOG] 3 ML PEN SC ×7 (07:50→21:00)
[2017-07-09] MEDS: SEVELAMER 800 MG TAB PO ×3 (08:59→17:42)
[2017-07-09] MEDS: ESCITALOPRAM 10 MG TAB PO (09:00)
[2017-07-09] MEDS: ASPIRIN (EC) 81 MG TAB PO (09:00)
[2017-07-09] MEDS: DOCUSATE SODIUM 100 MG CAP PO ×2 (09:00→20:58)
[2017-07-09] MEDS: SPIRONOLACTONE 25 MG TAB PO (09:00)
[2017-07-09] MEDS ORDERED: FUROSEMIDE 20 MG TAB PO (09:00)
[2017-07-09] MEDS: COLLAGENASE 30 GM TUBE TOP (09:02)
[2017-07-09] MEDS: ATORVASTATIN 80 MG TAB PO (20:58)
[2017-07-09] MEDS: TAMSULOSIN (SR) 0.4 MG CAP PO (20:58)
[2017-07-09] MEDS: INSULIN GLARGINE [LANtus] 3 ML PEN SC (21:00)
[2017-07-10] MEDS: ONDANSETRON 4 MG INJ IV (04:47)
[2017-07-10 05:45] LABS: ADD MAN DIFF? NO
[2017-07-10 06:05] LABS: ABNORMAL IP MESSAGE 1; BASOPHILS % 0.3 % (0.0-2.0); EOSINOPHILS # 0.3 10^3/ul (0.0-0.5); EOSINOPHILS % 2.5 % (0.0-7.0); HEMATOCRIT 39.5 % (42.0-52.0); HEMOGLOBIN 11.3 g/dl (14.0-18.0); LYMPHOCYTES # 1.1 10^3/ul (0.8-2.9); LYMPHOCYTES % 10.9 % (15.0-51.0); MEAN CORPUSCULAR HEMOGLOBIN 20.9 pg (29.0-33.0); MEAN CORPUSCULAR HGB CONC 28.6 g/dl (32.0-37.0); MONOCYTE # 0.7 10^3/ul (0.3-0.9); MONOCYTES % 6.9 % (0.0-11.0); NEUTROPHIL # 8.2 10^3/ul (1.6-7.5); PLATELET COUNT 231 10^3/UL (140-415); POSITIVE DIFF @See below; RED BLOOD COUNT 5.41 10^6/ul (4.70-6.10); RED CELL DISTRIBUTION WIDTH 22.4 % (11.5-14.5)
[2017-07-10 06:05] LABS: WHITE BLOOD COUNT 10.3 10^3/ul (4.8-10.8)
[2017-07-10 06:23] LABS: INR 2.93; PROTIME 31.4 Sec (11.9-14.9); PT RATIO 2.5
[2017-07-10 06:53] LABS: ANION GAP 22 (8-16); BLOOD UREA NITROGEN 88 mg/dl (7-20); CALCIUM 8.3 mg/dl (8.4-10.2); CARBON DIOXIDE 24 mmol/L (21-31); CHLORIDE 98 mmol/L (97-110); CREATININE 3.24 mg/dl (0.61-1.24); GLUCOSE 91 mg/dl (70-220); POTASSIUM 5.2 mmol/L (3.5-5.1); SODIUM 139 mmol/L (135-144)
[2017-07-10] MEDS: INSULIN ASPART [NOVOLOG] 3 ML PEN SC ×7 (07:50→21:00)
[2017-07-10] MEDS: ESCITALOPRAM 10 MG TAB PO ×2 (08:47→12:39)
[2017-07-10] MEDS: SEVELAMER 800 MG TAB PO ×3 (08:47→17:57)
[2017-07-10] MEDS: DOCUSATE SODIUM 100 MG CAP PO ×2 (08:47→21:39)
[2017-07-10] MEDS: ASPIRIN (EC) 81 MG TAB PO (08:47)
[2017-07-10] MEDS: NA POLYST SULFON 15 GM/60 ML BTL PO (08:59)
[2017-07-10] MEDS: COLLAGENASE 30 GM TUBE TOP (09:02)
[2017-07-10] MEDS: TAMSULOSIN (SR) 0.4 MG CAP PO (21:39)
[2017-07-10] MEDS: ATORVASTATIN 80 MG TAB PO (21:40)
[2017-07-10] MEDS: INSULIN GLARGINE [LANtus] 3 ML PEN SC (21:47)
[2017-07-11 05:37] LABS: ADD MAN DIFF? NO
[2017-07-11 05:44] LABS: WHITE BLOOD COUNT 8.4 10^3/ul (4.8-10.8)
[2017-07-11 05:44] LABS: ABNORMAL IP MESSAGE 1; BASOPHILS % 0.2 % (0.0-2.0); EOSINOPHILS # 0.1 10^3/ul (0.0-0.5); EOSINOPHILS % 1.1 % (0.0-7.0); HEMATOCRIT 38.6 % (42.0-52.0); HEMOGLOBIN 11.6 g/dl (14.0-18.0); LYMPHOCYTES % 12.1 % (15.0-51.0); MEAN CORPUSCULAR HEMOGLOBIN 21.3 pg (29.0-33.0); MEAN CORPUSCULAR HGB CONC 30.1 g/dl (32.0-37.0); MEAN CORPUSCULAR VOLUME 70.8 fl (82.0-101.0); MEAN PLATELET VOLUME 9.6 fl (7.4-10.4); MONOCYTE # 0.6 10^3/ul (0.3-0.9); NEUTROPHIL # 6.7 10^3/ul (1.6-7.5); PLATELET COUNT 204 10^3/UL (140-415); POSITIVE DIFF @See below; RED BLOOD COUNT 5.45 10^6/ul (4.70-6.10); RED CELL DISTRIBUTION WIDTH 22.5 % (11.5-14.5)
[2017-07-11 06:09] LABS: INR 2.96; PROTIME 31.7 Sec (11.9-14.9); PT RATIO 2.5
[2017-07-11 06:20] LABS: ANION GAP 20 (8-16); BLOOD UREA NITROGEN 93 mg/dl (7-20); CALCIUM 8.5 mg/dl (8.4-10.2); CARBON DIOXIDE 23 mmol/L (21-31); CHLORIDE 97 mmol/L (97-110); CREATININE 3.23 mg/dl (0.61-1.24); GLUCOSE 82 mg/dl (70-220); POTASSIUM 5.1 mmol/L (3.5-5.1); SODIUM 135 mmol/L (135-144)
[2017-07-11] MEDS: INSULIN ASPART [NOVOLOG] 3 ML PEN SC ×7 (08:59→20:36)
[2017-07-11] MEDS: DOCUSATE SODIUM 100 MG CAP PO ×2 (09:01→20:34)
[2017-07-11] MEDS: ASPIRIN (EC) 81 MG TAB PO (09:01)
[2017-07-11] MEDS: ESCITALOPRAM 10 MG TAB PO (09:01)
[2017-07-11] MEDS: COLLAGENASE 30 GM TUBE TOP (09:02)
[2017-07-11] MEDS: SEVELAMER 800 MG TAB PO ×3 (09:02→18:15)
[2017-07-11 11:33] LABS: ADD UMIC YES; UR ASCORBIC ACID NEGATIVE (NEGATIVE); UR BACTERIA FEW /HPF (NONE SEEN); UR BILIRUBIN (Dip) NEGATIVE (NEGATIVE); UR BLOOD (Dip) 3+ mg/dL (NEGATIVE); UR BUDDING YEAST MODERATE /HPF (NONE SEEN); UR CLARITY CLOUDY (CLEAR); UR COLOR YELLOW (YELLOW); UR GLUCOSE (Dip) NEGATIVE (NEGATIVE); UR GRANULAR CAST FEW /HPF (NONE SEEN); UR KETONES (Dip) NEGATIVE (NEGATIVE); UR LEUKOCYTE ESTERASE (Dip) 3+ Leu/ul (NEGATIVE); UR MUCUS FEW /HPF (NONE SEEN); UR NITRITE (Dip) NEGATIVE (NEGATIVE); UR NONSQUAMOUS EPITHELIAL CELL 1 /HPF (NONE SEEN); UR RBC 68 /HPF (0-5); UR SPECIFIC GRAVITY (Dip) 1.013 (1.003-1.030); UR SQUAMOUS EPITHELIAL CELL FEW /HPF (FEW); UR TOTAL PROTEIN (Dip) 1+ mg/dl (NEGATIVE); UR UROBILINOGEN (Dip) NEGATIVE (NEGATIVE); UR WBC > 182 /HPF (0-5)
[2017-07-11 11:41] LABS: CREATININE,URINE RANDOM 76.04 mg/dl (20-370)
[2017-07-11 11:41] LABS: POTASSIUM,URINE RANDOM 43.3 mmol/L (25-125)
[2017-07-11 11:47] LABS: SODIUM,URINE RANDOM < 13 mmol/L (30-90)
[2017-07-11] MEDS: VORICONAZOLE 200 MG/100 ML 100 ML IVPB ×2 (14:40→23:49)
[2017-07-11] MEDS: GLUCOSE GEL 15 GRAM TUBE PO (18:15)
[2017-07-11] MEDS: DEXTROSE 50% 50 ML SYRINGE IV (18:40)
[2017-07-11] MEDS: ATORVASTATIN 80 MG TAB PO (20:35)
[2017-07-11] MEDS: TAMSULOSIN (SR) 0.4 MG CAP PO (20:35)
[2017-07-11] MEDS: INSULIN GLARGINE [LANtus] 3 ML PEN SC (20:36)
[2017-07-12] MEDS: SEVELAMER 800 MG TAB PO ×3 (07:50→17:55)
[2017-07-12] MEDS: COLLAGENASE 30 GM TUBE TOP (08:31)
[2017-07-12] MEDS: INSULIN ASPART [NOVOLOG] 3 ML PEN SC ×7 (08:55→21:00)
[2017-07-12] MEDS: VORICONAZOLE 200 MG/100 ML 100 ML IVPB ×2 (08:55→21:18)
[2017-07-12] MEDS: ESCITALOPRAM 10 MG TAB PO (08:56)
[2017-07-12] MEDS: DOCUSATE SODIUM 100 MG CAP PO ×2 (08:56→21:18)
[2017-07-12] MEDS: ASPIRIN (EC) 81 MG TAB PO (08:56)
[2017-07-12] MEDS: ATORVASTATIN 80 MG TAB PO (21:18)
[2017-07-12] MEDS: TAMSULOSIN (SR) 0.4 MG CAP PO (21:18)
[2017-07-12] MEDS: INSULIN GLARGINE [LANtus] 3 ML PEN SC (21:23)
[2017-07-13] MEDS: ESCITALOPRAM 10 MG TAB PO (08:58)
[2017-07-13] MEDS: SEVELAMER 800 MG TAB PO ×3 (08:58→18:05)
[2017-07-13] MEDS: DOCUSATE SODIUM 100 MG CAP PO ×2 (08:58→20:57)
[2017-07-13] MEDS: VORICONAZOLE 200 MG/100 ML 100 ML IVPB ×2 (09:00→21:00)
[2017-07-13] MEDS: ASPIRIN (EC) 81 MG TAB PO (09:02)
[2017-07-13] MEDS: INSULIN ASPART [NOVOLOG] 3 ML PEN SC ×7 (09:03→21:00)
[2017-07-13] MEDS: COLLAGENASE 30 GM TUBE TOP (09:05)
[2017-07-13] MEDS: TAMSULOSIN (SR) 0.4 MG CAP PO (20:56)
[2017-07-13] MEDS: ATORVASTATIN 80 MG TAB PO (20:58)
[2017-07-13] MEDS: INSULIN GLARGINE [LANtus] 3 ML PEN SC (20:59)
[2017-07-14] MEDS: DOCUSATE SODIUM 100 MG CAP PO ×2 (08:54→21:00)
[2017-07-14] MEDS: ASPIRIN (EC) 81 MG TAB PO (08:55)
[2017-07-14] MEDS: SEVELAMER 800 MG TAB PO ×3 (08:55→17:47)
[2017-07-14] MEDS: ESCITALOPRAM 10 MG TAB PO (08:55)
[2017-07-14] MEDS: VORICONAZOLE 200 MG/100 ML 100 ML IVPB (09:00)
[2017-07-14] MEDS: INSULIN ASPART [NOVOLOG] 3 ML PEN SC ×7 (09:01→21:00)
[2017-07-14] MEDS: COLLAGENASE 30 GM TUBE TOP (09:02)
[2017-07-14] MEDS: WARFARIN 2 MG TAB PO (17:48)
[2017-07-14] MEDS: TAMSULOSIN (SR) 0.4 MG CAP PO (21:00)
[2017-07-14] MEDS: ATORVASTATIN 80 MG TAB PO (21:00)
[2017-07-14] MEDS ORDERED: VORICONAZOLE 200 MG TAB PO (21:00)
[2017-07-14] MEDS: INSULIN GLARGINE [LANtus] 3 ML PEN SC (21:00)
[2017-07-15] MEDS: INSULIN ASPART [NOVOLOG] 3 ML PEN SC ×7 (07:50→20:32)
[2017-07-15] MEDS: ESCITALOPRAM 10 MG TAB PO (08:22)
[2017-07-15] MEDS: SEVELAMER 800 MG TAB PO ×3 (08:23→17:07)
[2017-07-15] MEDS: DOCUSATE SODIUM 100 MG CAP PO ×2 (08:23→20:31)
[2017-07-15] MEDS: ASPIRIN (EC) 81 MG TAB PO (08:23)
[2017-07-15] MEDS: FUROSEMIDE 40 MG TAB PO (10:14)
[2017-07-15] MEDS: COLLAGENASE 30 GM TUBE TOP (15:00)
[2017-07-15] MEDS: WARFARIN 2 MG TAB PO (17:00)
[2017-07-15] MEDS: TAMSULOSIN (SR) 0.4 MG CAP PO (20:31)
[2017-07-15] MEDS: ATORVASTATIN 80 MG TAB PO (20:31)
[2017-07-15] MEDS: INSULIN GLARGINE [LANtus] 3 ML PEN SC (20:36)
[2017-07-16] MEDS: SEVELAMER 800 MG TAB PO ×3 (07:50→17:53)
[2017-07-16] MEDS: INSULIN ASPART [NOVOLOG] 3 ML PEN SC ×7 (07:50→20:24)
[2017-07-16] MEDS: ESCITALOPRAM 10 MG TAB PO (09:00)
[2017-07-16] MEDS: DOCUSATE SODIUM 100 MG CAP PO ×2 (09:00→20:23)
[2017-07-16] MEDS: COLLAGENASE 30 GM TUBE TOP (09:00)
[2017-07-16] MEDS: FUROSEMIDE 40 MG TAB PO (09:00)
[2017-07-16] MEDS: ASPIRIN (EC) 81 MG TAB PO (09:00)
[2017-07-16] MEDS: WARFARIN 2 MG TAB PO (17:00)
[2017-07-16] MEDS: TAMSULOSIN (SR) 0.4 MG CAP PO (20:24)
[2017-07-16] MEDS: ATORVASTATIN 80 MG TAB PO (20:24)
[2017-07-16] MEDS: INSULIN GLARGINE [LANtus] 3 ML PEN SC (20:24)
[2017-07-17] MEDS: DOCUSATE SODIUM 100 MG CAP PO (09:10)
[2017-07-17] MEDS: ESCITALOPRAM 10 MG TAB PO (09:10)
[2017-07-17] MEDS: SEVELAMER 800 MG TAB PO (09:10)
[2017-07-17] MEDS: ASPIRIN (EC) 81 MG TAB PO (09:10)
[2017-07-17] MEDS: FUROSEMIDE 40 MG TAB PO (09:11)
[2017-07-17] MEDS: INSULIN ASPART [NOVOLOG] 3 ML PEN SC ×2 (09:15)
[2017-07-17] MEDS: COLLAGENASE 30 GM TUBE TOP (09:16)
== END 2017-07-17 10:42 | DRG 871 ==
LOC: TEL 06-18 00:45 → MS1 07-03 21:55 → TEL 06-15 16:35 → E/R 15:12
DX: A41.9 Sepsis, unspecified organism (principal); I50.23 Acute on chronic systolic (congestive) heart failure; N17.0 Acute kidney failure with tubular necrosis; E87.2 Acidosis; I24.0 Acute coronary thrombosis not resulting in myocardial infarction; B37.49 Other urogenital candidiasis; L03.116 Cellulitis of left lower limb; I11.0 Hypertensive heart disease with heart failure; E83.39 Other disorders of phosphorus metabolism; E11.9 Type 2 diabetes mellitus without complications; I25.5 Ischemic cardiomyopathy; N40.0 Benign prostatic hyperplasia without lower urinary tract symptoms; I25.10 Atherosclerotic heart disease of native coronary artery without angina pectoris; Z91.14 Patient's other noncompliance with medication regimen; E78.5 Hyperlipidemia, unspecified; R33.9 Retention of urine, unspecified; I44.30 Unspecified atrioventricular block; I08.1 Rheumatic disorders of both mitral and tricuspid valves
CPT/HCPCS: 36415; 36600; 71010; 76775; 80048; 80053; 80061; 80069; 80202; 81001; 82140; 82550; 82553; 82565; 82803; 82962; 83036; 83605; 83690; 83735; 83880; 84100; 84133; 84155; 84300; 84484; 84520; 85025; 85610; 85730; 87040; 87086; 89190; 90686; 93005; 93306; 94640; 94664; 96365; 96372; 96375; 96376; 97110; 97116; 97164; 97530; 99285-25

== ENCOUNTER 2019-03-05 08:24 | Emergency (ER) | payer OTHER, MEDICAID | END 2019-03-05 09:27 | disposition home or self-care (01) | LOC: FTE 08:24 | DX: R05 Cough (principal); I11.0 Hypertensive heart disease with heart failure; I50.9 Heart failure, unspecified; Z76.0 Encounter for issue of repeat prescription; Z79.82 Long term (current) use of aspirin | CPT/HCPCS: 99282; Z7502 ==

== ENCOUNTER 2019-03-12 08:19 | Emergency (ER) | payer OTHER ==
[2019-03-12] MEDS: FUROSEMIDE 20 MG TAB PO (11:09)
== END 2019-03-12 11:35 | disposition home or self-care (01) ==
LOC: E/R 08:19
DX: L03.115 Cellulitis of right lower limb (principal); L03.116 Cellulitis of left lower limb; R60.0 Localized edema; I11.0 Hypertensive heart disease with heart failure; I50.9 Heart failure, unspecified; Z79.82 Long term (current) use of aspirin
CPT/HCPCS: 99283; Z7502

== ENCOUNTER 2019-03-18 22:36 | Emergency (ER) | payer OTHER | END 2019-03-19 01:23 | disposition left against medical advice (07) | LOC: E/R 22:36 | DX: R60.0 Localized edema (principal); I87.2 Venous insufficiency (chronic) (peripheral); I11.0 Hypertensive heart disease with heart failure; I50.9 Heart failure, unspecified | CPT/HCPCS: 99283; Z7502 ==